=== PATIENT | male | born 1960 | race African-American/Black ===

== ENCOUNTER 2018-01-02 13:20 | Inpatient (IN) | payer SELFPAY ==
[2018-01-02 16:00] VITALS: BMI 20.3
--- NOTE | 2018-01-02 20:27 | HP ---
CIWA Score - CIWA Score Nausea/Vomitin-No Nausea/No Vomiting Muscle Tremors: 4-Moderate,w/Arms Extend Anxiety: 4-Mod. Anxious/Guarded Agitation: 4-Moderately Restless Paroxysmal Sweats: No Perspiration Orientation: 2-Disoriented Date<2 days Tacttile Disturbances: 0-None Auditory Disturbances: 0-None Visual Disturbances: 0-None Headache: 0-None Present CIWA-Ar Total Score: 14 Admission ROS BHS - HPI Chief Complaint: C/O WITHDRAWAL SX'S. SEEKING DETOX TXMENT Allergies/Adverse Reactions: Allergies Allergy/AdvReac Type Severity Reaction Status Date / Time No Known Allergies Allergy Verified 01/02/18 18:28 History of Present Illness: 57 Y.O. MALE WITH LONG HX/O ALCOHOLISM HERE FOR DETOX. CLIENT IS KNOWN TO THIS PROGRAM. LAST HERE ABOUT 2 YEARS AGO. REPORTS LAST INPATIENT TXMENT WAS ABOUT A MONTH AGO AT THE [facility]. UTOX + FOR BENZO. CLIENT DENIES USE. SELF REFERRED. REPORTS LONGEST CLEAN TIME 9 MONTHS. Exam Limitations: No Limitations - Ebola screening Have you traveled outside of the country in the last 21 days: No (N) Have you had contact with anyone from an Ebola affected area: No Have you been sick,other than usual withdrawal symptoms: No Do you have a fever: No - Review of Systems Constitutional: Loss of Appetite, Changes in sleep, Unintentional Wgt. Loss EENT: reports: Dental Problems (MISSING TEETH), Throat Pain (SORE), Other ( RINORRHEA) Respiratory: reports: No Symptoms reported Cardiac: reports: No Symptoms Reported GI: reports: No Symptoms Reported : reports: No Symptoms Reported Musculoskeletal: reports: Joint Pain Integumentary: reports: No Symptoms Reported Neuro: reports: No Symptoms reported Endocrine: reports: No Symptoms Reported Hematology: reports: No Symptoms Reported Psychiatric: reports: Anxious, Depressed Other Systems: Reviewed and Negative Patient History - Patient Medical History Hx Anemia: No Hx Asthma: No Hx Chronic Obstructive Pulmonary Disease (COPD): No Hx Cancer: No Hx Cardiac Disorders: No Hx Congestive Heart Failure: No Hx Hypertension: No Hx Hypercholesterolemia: No Hx Pacemaker: No HX Cerebrovascular Accident: No Hx Seizures: Yes (R/T ETOH WITHDRAWAL. LAST EPISODE "LONG TIME AGO") Hx Diabetes: No Hx Gastrointestinal Disorders: No Hx Genitourinary Disorders: No Hx Sexually Transmitted Disorders: No Hx Renal Disease (ESRD): No Hx Human Immunodeficiency Virus (HIV): No Hx Hepatitis C: Yes (TX'ED) Hx Depression: Yes (ON MEDS) Hx Suicide Attempt: Yes (Tried to cut himself in 1992; DENIES CURRENT IDEATION.) Hx Bipolar Disorder: Yes Hx Schizophrenia: No Other Medical History: DENIES - Patient Surgical History Past Surgical History: Yes Hx Neurologic Surgery: No Hx Cataract Extraction: No Hx Cardiac Surgery: No Hx Lung Surgery: No Hx Breast Surgery: No Hx Breast Biopsy: No Hx Abdominal Surgery: Yes (umbillical hernia repair in 2008) Hx Appendectomy: No Hx Cholecystectomy: No Hx Genitourinary Surgery: No Hx Section: No Hx Orthopedic Surgery: No Anesthesia Reaction: No - PPD History Previous Implant?: Yes Documented Results: Negative w/o proof Implanted On Prior R Admission?: No PPD to be Administered?: Yes - Smoking Cessation Smoking history: Current every day smoker Have you smoked in the past 12 months: Yes Aproximately how many cigarettes per day: 20 Cigars Per Day: 0 Hx Chewing Tobacco Use: No Initiated information on smoking cessation: Yes 'Breaking Loose' booklet given: 01/02/18 - Substance & Tx. History Hx Alcohol Use: Yes Hx Substance Use: Yes Substance Use Type: Alcohol, Cocaine Hx Substance Use Treatment: Yes ([facility]) - Substances Abused Alcohol Route: Oral Frequency: Daily Amount used: liquor- 4 pints, beer- 1 six pack Age of first use: 27 Date of Last Use: 01/02/18 Cocaine Route: Smoking Frequency: Daily Amount used: 5gm Age of first use: 30 Date of Last Use: 01/02/18 Family Disease History - Family Disease History Family History: Denies Admission Physical Exam S - Vital Signs Vital Signs: Vital Signs - 24 hr 01/02/18 15:54 Temperature 97.5 F L Pulse Rate 82 Respiratory 18 Rate Blood Pressure 116/84 - Physical General Appearance: Yes: Appropriately Dressed, Mild Distress, Alcohol on Breath , Tremorous, Anxious HEENTM: Yes: EOMI, Normocephalic, Normal Voice, ARMEN, Pharynx Normal, Rhinorrhea , Other (MISSING TEETH) Respiratory: Yes: Chest Non-Tender, Lungs Clear, Normal Breath Sounds, No Respiratory Distress, No Accessory Muscle Use Neck: Yes: No masses,lesions,Nodules, Supple, Trachea in good position Breast: Yes: Breast Exam Deferred Cardiology: Yes: Regular Rhythm, Regular Rate, S1, S2 Abdominal: Yes: Normal Bowel Sounds, Non Tender, Soft Genitourinary: Yes: Within Normal Limits Back: Yes: Normal Inspection Musculoskeletal: Yes: full range of Motion, Gait Steady Extremities: Yes: Normal Range of Motion, Non-Tender, Tremors Neurological: Yes: Alert, Motor Strength 5/5 Integumentary: Yes: Normal Color, Dry, Warm Lymphatic: Yes: Within Normal Limits - Diagnostic (1) Alcohol dependence with uncomplicated withdrawal Current Visit: Yes Status: Chronic (2) Cocaine abuse, uncomplicated Current Visit: Yes Status: Chronic (3) Alcohol related seizure Current Visit: Yes Status: Chronic (4) Nicotine dependence Current Visit: Yes Status: Chronic Qualifiers: Nicotine product type: cigarettes Substance use status: uncomplicated Qualified Code(s): F17.210 - Nicotine dependence, cigarettes, uncomplicated Cleared for Admission [facility] - Detox or Rehab [facility] Level of Care: Medically Managed Detox Regimen/Protocol: Librium [facility] Breath Alcohol Content Breath Alcohol Content: 0.129 Urine Drug Screen - Results Drug Screen Negative: No Urine Drug Screen Results: THC-Marijuana, JOSÉ MANUEL-Cocaine, BZO-Benzodiazepines
[2018-01-02] MEDS ORDERED: guaiFENesin/D-METHORPHAN HB 10 ML UNIT-DOSE CUPS PO PRN (20:47)
[2018-01-02] MEDS ORDERED: ACETAMINOPHEN 325 MG TABLET (FP) PO PRN (20:47)
[2018-01-02] MEDS ORDERED: LOPERAMIDE HCL 2 MG CAPSULE PO PRN (20:47)
[2018-01-02] MEDS ORDERED: MAGNESIUM CITRATE 300 ML BOTTLE PO PRN (20:47)
[2018-01-02] MEDS ORDERED: IBUPROFEN 400 MG TABLET (FP) PO PRN (20:47)
[2018-01-02] MEDS ORDERED: hydrOXYzine PAMOATE 50 MG CAPSULE (FP) PO PRN (20:47)
[2018-01-02] MEDS ORDERED: NICOTINE POLACRILEX 2 MG GUM BC PRN (20:47)
[2018-01-02] MEDS ORDERED: chlordiazePOXIDE HCL 25 MG CAPSULE PO PRN (20:47)
[2018-01-02] MEDS ORDERED: P-EPHED 60MG/TRIPROLIDI 2.5MG TABLET PO PRN (20:47)
[2018-01-02] MEDS ORDERED: MAGNESIUM HYDROX 2400MG/30ML ORAL SUSPENSION 30 ML CUP PO PRN (20:47)
[2018-01-02] MEDS ORDERED: MENTHOL/PHENOL 1 EACH UD MM PRN (20:47)
[2018-01-02] MEDS ORDERED: MAG HYDROX/AL HYDROX/SIMETH 30 ML UNIT-DOSE CUP PO PRN (20:47)
[2018-01-02] MEDS ORDERED: MELATONIN 5 MG TABLETS PO PRN (22:00)
[2018-01-02] MEDS: chlordiazePOXIDE HCL 25 MG CAPSULE PO SCH (22:05)
[2018-01-02] MEDS: THIAMINE HCL 100 MG TABLET (FP) PO SCH (22:06)
[2018-01-03 02:20] LABS: URINE APPEARANCE CLEAR; URINE BILIRUBIN NEGATIVE (<2.0 mg/dL); URINE BLOOD NEGATIVE (NEGATIVE); URINE COLOR YELLOW; URINE GLUCOSE (UA) NEGATIVE (NEGATIVE); URINE KETONE NEGATIVE (NEGATIVE); URINE LEUK ESTERASE NEGATIVE (NEGATIVE); URINE NITRITE NEGATIVE (NEGATIVE); URINE PROTEIN NEGATIVE (NEGATIVE); URINE UROBILINOGEN NEGATIVE mg/dL (0.2-1.0)
[2018-01-03] MEDS: chlordiazePOXIDE HCL 25 MG CAPSULE PO SCH ×4 (07:34→22:21)
--- NOTE | 2018-01-03 09:34 | EKG ---
Test Reason : Blood Pressure : / mmHG Vent. Rate : 058 BPM Atrial Rate : 058 BPM P-R Int : 136 ms QRS Dur : 096 ms QT Int : 432 ms P-R-T Axes : 046 077 068 degrees QTc Int : 424 ms SINUS BRADYCARDIA NO PREVIOUS ECGS AVAILABLE Confirmed by DEJA STERN MD ([id number]) on 01/03/2018 9:34:01 AM Referred By: Confirmed By:DEJA STERN MD
[2018-01-03 09:52] LABS: HEMATOCRIT 44.8 % (35.4-49); HEMOGLOBIN 14.2 GM/dL (11.7-16.9); MCHC 31.6 g/dl (32.0-35.9); MEAN CELL VOLUME 75.7 fl (80-96); MEAN PLT VOLUME 8.6 fl (7.5-11.1); PLATELET COUNT 174 K/MM3 (134-434); RBC 5.91 M/mm3 (4.00-5.60); RDW 14.6 % (11.9-15.9); WHITE BLOOD COUNT 4.9 K/mm3 (4.0-10.0)
[2018-01-03 10:07] LABS: ALBUMIN 3.5 g/dl (3.4-5.0); ANION GAP 5 (8-16); BLOOD UREA NITROGEN 9 mg/dL (7-18); CALCIUM 9.2 mg/dL (8.5-10.1); CHLORIDE 110 mmol/L (98-107); CO2 29 mmol/L (21-32); CREATININE 1.3 mg/dL (0.7-1.3); GLUCOSE,RANDOM 81 mg/dL (74-106); POTASSIUM 4.6 mmol/L (3.5-5.1); SGOT/AST 25 U/L (15-37); SGPT/ALT 21 U/L (12-78); SODIUM 144 mmol/L (136-145)
[2018-01-03 10:09] LABS: ALK PHOS 74 U/L (45-117)
[2018-01-03] MEDS: NICOTINE 21 MG/24 HOURS TOPICAL PATCH TD SCH (10:18)
[2018-01-03] MEDS: PRENATAL VITAMINS W/ FOLIC ACID TABLET (FP) PO SCH (10:18)
--- NOTE | 2018-01-03 10:49 | CONSULT ---
[facility] Psychiatric Consult - Data Date of interview: 01/03/18 Admission source: [facility] Identifying data: Pt. is a 57 year old single AA male, father of two, unemployed , lives in a one bedroom apartment and [facility]. This is one of multiple admissions for patient. Pt. admitted to detox for alcohol and cocaine dependence. Substance Abuse History: Following information confirmed with Mr. Ellis: Smoking Cessation. Smoking history: Current every day smoker. Have you smoked in the past 12 months: Yes. Aproximately how many cigarettes per day: 20. Cigars Per Day: 0. Hx Chewing Tobacco Use: No. Initiated information on smoking cessation: Yes. 'Breaking Loose' booklet given: 01/02/18. - Substance & Tx. History. Hx Alcohol Use: Yes. Hx Substance Use: Yes. Substance Use Type : Alcohol, Cocaine. Hx Substance Use Treatment: Yes ([facility]). - Substances Abused. Alcohol. Route: Oral. Frequency: Daily. Amount used: liquor- 4 pints, beer- 1 six pack. Age of first use: 27. Date of Last Use: 09/09. Cocaine. Route: Smoking. Frequency: Daily. Amount used: 5gm. Age of first use: 30. Date of Last Use: 01/02/18 Medical History: Hep C, Seizures (r/t ETOH withdrawal. Last episiode was "long time ago") Psychiatric History: Pt. lethargic and unable to provide a cohesive psychiatric history. Pt. reports several psychiatric hospitalizations, most recently three years ago at [facility] on [address]. [facility] (Pt. [facility] in the [employer]) in [facility]. Pt reports a diagnosis of Bipolar disorder and claims to be prescribed depakote 1500mg and Zyprexa 10mg. Reports most recently taking his medications approximately 8 days ago. Pt. denies h/o suicide attempt. Pt currently denies suicidal and homicidal ideation. Physical/Sexual Abuse/Trauma History: Denies. Mental Status Exam - Mental Status Exam Alert and Oriented to: Time, Place, Person Cognitive Function: Good Patient Appearance: Well Groomed Mood: Withdrawn Affect: Mood Congruent Patient Behavior: Fatigued, Guarded, Asleep (Pt able to be awaken to complete interview,although gave an unclear history. ) Speech Pattern: Delayed Voice Loudness: Moderately Soft/Quiet Thought Process: Intact Thought Disorder: Not Present Hallucinations: Denies Suicidal Ideation: Denies Homicidal Ideation: Denies Insight/Judgement: Poor Sleep: Fair Appetite: Fair Muscle strength/Tone: Normal Gait/Station: Other (Did not observe patient's gait.) Psychiatric Findings - Problem List ([place] 1, 2,3) (1) Alcohol dependence with uncomplicated withdrawal Current Visit: Yes Status: Acute (2) Cocaine abuse, uncomplicated Current Visit: Yes Status: Acute (3) Nicotine dependence Current Visit: Yes Status: Chronic Qualifiers: Nicotine product type: cigarettes Substance use status: uncomplicated Qualified Code(s): F17.210 - Nicotine dependence, cigarettes, uncomplicated (4) Bipolar disorder Current Visit: Yes Status: Chronic (5) Insomnia Current Visit: Yes Status: Acute - Initial Treatment Plan Initial Treatment Plan: Psychoeducation provided. Detoxification provided. Zyprexa 10mg qhs + Depakote 500mg qhs ordered. Insomnia to be addressed with the Melatonin 5mg. Valproic level to be ordered for 01/04/18. Benefits and side effects discussed. Verbal consent given. Will continue to monitor.
--- NOTE | 2018-01-03 11:38 | PN ---
S CIWA - CIWA Score Nausea/Vomitin Muscle Tremors: 3 Anxiety: 3 Agitation: 3 Paroxysmal Sweats: 1-Minimal Palms Moist Orientation: 0-Oriented Tacttile Disturbances: 1-Very Mild Itch/Numbness Auditory Disturbances: 1-Very Mild Visual Disturbances: 0-None Headache: 2-Mild CIWA-Ar Total Score: 17 BHS Progress Note (SOAP) Subjective: ALERT,IRRITABLE,ANXIOUS,INTERRUPTED SLEEP,TREMOR Objective: 01/03/18 11:35 Vital Signs Temperature 97.7 F 01/03/18 10:00 Pulse Rate 73 01/03/18 10:00 Respiratory Rate 18 01/03/18 10:00 Blood Pressure 107/81 01/03/18 10:00 O2 Sat by Pulse Oximetry (%) EKG SINUS BRADYCARDIA 58/MIN NO CHEST PAIN,NO SOB,NO DIZZINESS Laboratory Last Values WBC 4.9 K/mm3 (4.0-10.0) 01/03/18 08:00 RBC 5.91 M/mm3 (4.00-5.60) H 01/03/18 08:00 Hgb 14.2 GM/dL (11.7-16.9) 01/03/18 08:00 Hct 44.8 % (35.4-49) 01/03/18 08:00 MCV 75.7 fl (80-96) L 01/03/18 08:00 MCH 24.0 pg (25.7-33.7) L 01/03/18 08:00 MCHC 31.6 g/dl (32.0-35.9) L 01/03/18 08:00 RDW 14.6 % (11.9-15.9) 01/03/18 08:00 Plt Count 174 K/MM3 (134-434) 01/03/18 08:00 MPV 8.6 fl (7.5-11.1) D 01/03/18 08:00 Sodium 144 mmol/L (136-145) 01/03/18 08:00 Potassium 4.6 mmol/L (3.5-5.1) 01/03/18 08:00 Chloride 110 mmol/L (98-107) H 01/03/18 08:00 Carbon Dioxide 29 mmol/L (21-32) 01/03/18 08:00 Anion Gap 5 (8-16) L 01/03/18 08:00 BUN 9 mg/dL (7-18) 01/03/18 08:00 Creatinine 1.3 mg/dL (0.7-1.3) 01/03/18 08:00 Creat Clearance w eGFR 56.90 (>60) 01/03/18 08:00 Random Glucose 81 mg/dL (74-106) 01/03/18 08:00 Calcium 9.2 mg/dL (8.5-10.1) 01/03/18 08:00 Total Bilirubin 1.0 mg/dL (0.2-1.0) D 01/03/18 08:00 AST 25 U/L (15-37) D 01/03/18 08:00 ALT 21 U/L (12-78) D 01/03/18 08:00 Alkaline Phosphatase 74 U/L (45-117) 01/03/18 08:00 Total Protein 7.0 g/dl (6.4-8.2) 01/03/18 08:00 Albumin 3.5 g/dl (3.4-5.0) 01/03/18 08:00 Urine Color Yellow 01/03/18 00:05 Urine Appearance Clear 01/03/18 00:05 Urine pH 5.0 (5.0-8.0) 01/03/18 00:05 Ur Specific [place] 1.011 (1.001-1.035) 01/03/18 00:05 Urine Protein Negative (NEGATIVE) 01/03/18 00:05 Urine Glucose (UA) Negative (NEGATIVE) 01/03/18 00:05 Urine Ketones Negative (NEGATIVE) 01/03/18 00:05 Urine Blood Negative (NEGATIVE) 01/03/18 00:05 Urine Nitrite Negative (NEGATIVE) 01/03/18 00:05 Urine Bilirubin Negative (<2.0 mg/dL) 01/03/18 00:05 Urine Urobilinogen Negative mg/dL (0.2-1.0) 01/03/18 00:05 Ur Leukocyte Esterase Negative (NEGATIVE) 01/03/18 00:05 HIV 1&2 Antibody Screen Negative 01/03/18 08:00 HIV P24 Antigen Negative 01/03/18 08:00 01/03/18 11:38 RPR PENDING Assessment: 01/03/18 11:38 WITHDRAWAL SYMPTOM Plan: CONTINUE DETOX
[2018-01-03] MEDS: OLANZapine 10 MG TABLET PO SCH (22:21)
[2018-01-03] MEDS: THIAMINE HCL 100 MG TABLET (FP) PO SCH (22:21)
[2018-01-03] MEDS: DIVALPROEX SODIUM 500 MG TABLET E.C. PO SCH (22:21)
[2018-01-04] MEDS: chlordiazePOXIDE HCL 25 MG CAPSULE PO SCH ×3 (05:53→17:40)
[2018-01-04] MEDS: NICOTINE 21 MG/24 HOURS TOPICAL PATCH TD SCH (10:59)
[2018-01-04] MEDS: PRENATAL VITAMINS W/ FOLIC ACID TABLET (FP) PO SCH (10:59)
--- NOTE | 2018-01-04 14:26 | PN ---
S CIWA - CIWA Score Nausea/Vomitin Muscle Tremors: 3 Anxiety: 3 Agitation: 2 Paroxysmal Sweats: 1-Minimal Palms Moist Orientation: 0-Oriented Tacttile Disturbances: 1-Very Mild Itch/Numbness Auditory Disturbances: 1-Very Mild Visual Disturbances: 0-None Headache: 2-Mild CIWA-Ar Total Score: 16 BHS Progress Note (SOAP) Subjective: ALERT,IRRITABLE,ANXIOUS,INTERRUPTED SLEEP,TREMOR Objective: 01/04/18 14:24 Vital Signs Temperature 97.7 F 01/04/18 10:47 Pulse Rate 77 01/04/18 10:47 Respiratory Rate 20 01/04/18 10:47 Blood Pressure 105/68 01/04/18 10:47 O2 Sat by Pulse Oximetry (%) Laboratory Last Values WBC 4.9 K/mm3 (4.0-10.0) 01/03/18 08:00 RBC 5.91 M/mm3 (4.00-5.60) H 01/03/18 08:00 Hgb 14.2 GM/dL (11.7-16.9) 01/03/18 08:00 Hct 44.8 % (35.4-49) 01/03/18 08:00 MCV 75.7 fl (80-96) L 01/03/18 08:00 MCH 24.0 pg (25.7-33.7) L 01/03/18 08:00 MCHC 31.6 g/dl (32.0-35.9) L 01/03/18 08:00 RDW 14.6 % (11.9-15.9) 01/03/18 08:00 Plt Count 174 K/MM3 (134-434) 01/03/18 08:00 MPV 8.6 fl (7.5-11.1) D 01/03/18 08:00 Sodium 144 mmol/L (136-145) 01/03/18 08:00 Potassium 4.6 mmol/L (3.5-5.1) 01/03/18 08:00 Chloride 110 mmol/L (98-107) H 01/03/18 08:00 Carbon Dioxide 29 mmol/L (21-32) 01/03/18 08:00 Anion Gap 5 (8-16) L 01/03/18 08:00 BUN 9 mg/dL (7-18) 01/03/18 08:00 Creatinine 1.3 mg/dL (0.7-1.3) 01/03/18 08:00 Creat Clearance w eGFR 56.90 (>60) 01/03/18 08:00 Random Glucose 81 mg/dL (74-106) 01/03/18 08:00 Calcium 9.2 mg/dL (8.5-10.1) 01/03/18 08:00 Total Bilirubin 1.0 mg/dL (0.2-1.0) D 01/03/18 08:00 AST 25 U/L (15-37) D 01/03/18 08:00 ALT 21 U/L (12-78) D 01/03/18 08:00 Alkaline Phosphatase 74 U/L (45-117) 01/03/18 08:00 Total Protein 7.0 g/dl (6.4-8.2) 01/03/18 08:00 Albumin 3.5 g/dl (3.4-5.0) 01/03/18 08:00 Urine Color Yellow 01/03/18 00:05 Urine Appearance Clear 01/03/18 00:05 Urine pH 5.0 (5.0-8.0) 01/03/18 00:05 Ur Specific [place] 1.011 (1.001-1.035) 01/03/18 00:05 Urine Protein Negative (NEGATIVE) 01/03/18 00:05 Urine Glucose (UA) Negative (NEGATIVE) 01/03/18 00:05 Urine Ketones Negative (NEGATIVE) 01/03/18 00:05 Urine Blood Negative (NEGATIVE) 01/03/18 00:05 Urine Nitrite Negative (NEGATIVE) 01/03/18 00:05 Urine Bilirubin Negative (<2.0 mg/dL) 01/03/18 00:05 Urine Urobilinogen Negative mg/dL (0.2-1.0) 01/03/18 00:05 Ur Leukocyte Esterase Negative (NEGATIVE) 01/03/18 00:05 Valproic Acid 39.755 ug/ml (50-100) L 01/04/18 09:30 RPR Titer Nonreactive (NONREACTIVE) 01/03/18 08:00 HIV 1&2 Antibody Screen Negative 01/03/18 08:00 HIV P24 Antigen Negative 01/03/18 08:00 Assessment: 01/04/18 14:25 WITHDRAWAL SYMPTOM Plan: CONTINUE DETOX
[2018-01-04] MEDS: chlordiazePOXIDE 5 MG CAPSULE PO SCH (22:46)
[2018-01-04] MEDS: DIVALPROEX SODIUM 500 MG TABLET E.C. PO SCH (22:46)
[2018-01-04] MEDS: THIAMINE HCL 100 MG TABLET (FP) PO SCH (22:46)
[2018-01-04] MEDS: OLANZapine 10 MG TABLET PO SCH (22:46)
[2018-01-05] MEDS: chlordiazePOXIDE 5 MG CAPSULE PO SCH ×3 (05:37→17:32)
[2018-01-05] MEDS: PRENATAL VITAMINS W/ FOLIC ACID TABLET (FP) PO SCH (10:49)
[2018-01-05] MEDS: NICOTINE 21 MG/24 HOURS TOPICAL PATCH TD SCH (10:50)
--- NOTE | 2018-01-05 13:44 | PN ---
BHS Progress Note (SOAP) Subjective: feeling better less sweat no tremor denies gi distress Objective: 01/05/18 13:43 Vital Signs Temperature 97.5 F L 01/05/18 12:07 Pulse Rate 75 01/05/18 12:07 Respiratory Rate 18 01/05/18 12:07 Blood Pressure 120/83 01/05/18 12:07 O2 Sat by Pulse Oximetry (%) Laboratory Last Values WBC 4.9 K/mm3 (4.0-10.0) 01/03/18 08:00 RBC 5.91 M/mm3 (4.00-5.60) H 01/03/18 08:00 Hgb 14.2 GM/dL (11.7-16.9) 01/03/18 08:00 Hct 44.8 % (35.4-49) 01/03/18 08:00 MCV 75.7 fl (80-96) L 01/03/18 08:00 MCH 24.0 pg (25.7-33.7) L 01/03/18 08:00 MCHC 31.6 g/dl (32.0-35.9) L 01/03/18 08:00 RDW 14.6 % (11.9-15.9) 01/03/18 08:00 Plt Count 174 K/MM3 (134-434) 01/03/18 08:00 MPV 8.6 fl (7.5-11.1) D 01/03/18 08:00 Sodium 144 mmol/L (136-145) 01/03/18 08:00 Potassium 4.6 mmol/L (3.5-5.1) 01/03/18 08:00 Chloride 110 mmol/L (98-107) H 01/03/18 08:00 Carbon Dioxide 29 mmol/L (21-32) 01/03/18 08:00 Anion Gap 5 (8-16) L 01/03/18 08:00 BUN 9 mg/dL (7-18) 01/03/18 08:00 Creatinine 1.3 mg/dL (0.7-1.3) 01/03/18 08:00 Creat Clearance w eGFR 56.90 (>60) 01/03/18 08:00 Random Glucose 81 mg/dL (74-106) 01/03/18 08:00 Calcium 9.2 mg/dL (8.5-10.1) 01/03/18 08:00 Total Bilirubin 1.0 mg/dL (0.2-1.0) D 01/03/18 08:00 AST 25 U/L (15-37) D 01/03/18 08:00 ALT 21 U/L (12-78) D 01/03/18 08:00 Alkaline Phosphatase 74 U/L (45-117) 01/03/18 08:00 Total Protein 7.0 g/dl (6.4-8.2) 01/03/18 08:00 Albumin 3.5 g/dl (3.4-5.0) 01/03/18 08:00 Urine Color Yellow 01/03/18 00:05 Urine Appearance Clear 01/03/18 00:05 Urine pH 5.0 (5.0-8.0) 01/03/18 00:05 Ur Specific [place] 1.011 (1.001-1.035) 01/03/18 00:05 Urine Protein Negative (NEGATIVE) 01/03/18 00:05 Urine Glucose (UA) Negative (NEGATIVE) 01/03/18 00:05 Urine Ketones Negative (NEGATIVE) 01/03/18 00:05 Urine Blood Negative (NEGATIVE) 01/03/18 00:05 Urine Nitrite Negative (NEGATIVE) 01/03/18 00:05 Urine Bilirubin Negative (<2.0 mg/dL) 01/03/18 00:05 Urine Urobilinogen Negative mg/dL (0.2-1.0) 01/03/18 00:05 Ur Leukocyte Esterase Negative (NEGATIVE) 01/03/18 00:05 Valproic Acid 39.755 ug/ml (50-100) L 01/04/18 09:30 RPR Titer Nonreactive (NONREACTIVE) 01/03/18 08:00 HIV 1&2 Antibody Screen Negative 01/03/18 08:00 HIV P24 Antigen Negative 01/03/18 08:00 lab noted Assessment: mild withdrawal sx Plan: medically supervised detox
[2018-01-05] MEDS: THIAMINE HCL 100 MG TABLET (FP) PO SCH (22:43)
[2018-01-05] MEDS: OLANZapine 10 MG TABLET PO SCH (22:43)
[2018-01-05] MEDS: DIVALPROEX SODIUM 500 MG TABLET E.C. PO SCH (22:43)
[2018-01-05] MEDS: chlordiazePOXIDE HCL 10 MG CAPSULE PO SCH (22:43)
[2018-01-06] MEDS: chlordiazePOXIDE HCL 10 MG CAPSULE PO SCH ×2 (06:02→10:27)
--- NOTE | 2018-01-06 08:57 | PN ---
S Progress Note (SOAP) Subjective: ALERT,NO COMPLAINT Objective: 01/06/18 08:55 Vital Signs Temperature 97.0 F L 01/06/18 06:25 Pulse Rate 68 01/06/18 06:25 Respiratory Rate 18 01/06/18 06:25 Blood Pressure 94/64 01/06/18 06:25 O2 Sat by Pulse Oximetry (%) Assessment: 01/06/18 08:56 DETOX COMPLETED,NO WITHDRAWAL SYMPTOM Plan: DISCHARGE TODAY,FOLLOW UP WITH AFTER CARE PROGRAM ARRANGEMENT
--- NOTE | 2018-01-06 09:02 | DS ---
[facility] Detox Discharge Summary Admission Date: 01/02/18 Discharge Date: 01/06/18 - History Present History: Alcohol Dependence, Cocaine Dependence Additional Comments: FOLLOW UP WITH AFTER CARE PROGRAM ARRANGEMENT Pertinent Past History: ALCOHOL RELATED SEIZURE NICOTINE DEPENDENCE - Physical Exam Results Vital Signs: Vital Signs Temperature 97.0 F L 01/06/18 06:25 Pulse Rate 68 01/06/18 06:25 Respiratory Rate 18 01/06/18 06:25 Blood Pressure 94/64 01/06/18 06:25 O2 Sat by Pulse Oximetry (%) Pertinent Admission Physical Exam Findings: WITHDRAWAL SIGNS AND SYMPTOM Vital Signs Temperature 97.0 F L 01/06/18 06:25 Pulse Rate 68 01/06/18 06:25 Respiratory Rate 18 01/06/18 06:25 Blood Pressure 94/64 01/06/18 06:25 O2 Sat by Pulse Oximetry (%) Laboratory Last Values WBC 4.9 K/mm3 (4.0-10.0) 01/03/18 08:00 RBC 5.91 M/mm3 (4.00-5.60) H 01/03/18 08:00 Hgb 14.2 GM/dL (11.7-16.9) 01/03/18 08:00 Hct 44.8 % (35.4-49) 01/03/18 08:00 MCV 75.7 fl (80-96) L 01/03/18 08:00 MCH 24.0 pg (25.7-33.7) L 01/03/18 08:00 MCHC 31.6 g/dl (32.0-35.9) L 01/03/18 08:00 RDW 14.6 % (11.9-15.9) 01/03/18 08:00 Plt Count 174 K/MM3 (134-434) 01/03/18 08:00 MPV 8.6 fl (7.5-11.1) D 01/03/18 08:00 Sodium 144 mmol/L (136-145) 01/03/18 08:00 Potassium 4.6 mmol/L (3.5-5.1) 01/03/18 08:00 Chloride 110 mmol/L (98-107) H 01/03/18 08:00 Carbon Dioxide 29 mmol/L (21-32) 01/03/18 08:00 Anion Gap 5 (8-16) L 01/03/18 08:00 BUN 9 mg/dL (7-18) 01/03/18 08:00 Creatinine 1.3 mg/dL (0.7-1.3) 01/03/18 08:00 Creat Clearance w eGFR 56.90 (>60) 01/03/18 08:00 Random Glucose 81 mg/dL (74-106) 01/03/18 08:00 Calcium 9.2 mg/dL (8.5-10.1) 01/03/18 08:00 Total Bilirubin 1.0 mg/dL (0.2-1.0) D 01/03/18 08:00 AST 25 U/L (15-37) D 01/03/18 08:00 ALT 21 U/L (12-78) D 01/03/18 08:00 Alkaline Phosphatase 74 U/L (45-117) 01/03/18 08:00 Total Protein 7.0 g/dl (6.4-8.2) 01/03/18 08:00 Albumin 3.5 g/dl (3.4-5.0) 01/03/18 08:00 Urine Color Yellow 01/03/18 00:05 Urine Appearance Clear 01/03/18 00:05 Urine pH 5.0 (5.0-8.0) 01/03/18 00:05 Ur Specific [place] 1.011 (1.001-1.035) 01/03/18 00:05 Urine Protein Negative (NEGATIVE) 01/03/18 00:05 Urine Glucose (UA) Negative (NEGATIVE) 01/03/18 00:05 Urine Ketones Negative (NEGATIVE) 01/03/18 00:05 Urine Blood Negative (NEGATIVE) 01/03/18 00:05 Urine Nitrite Negative (NEGATIVE) 01/03/18 00:05 Urine Bilirubin Negative (<2.0 mg/dL) 01/03/18 00:05 Urine Urobilinogen Negative mg/dL (0.2-1.0) 01/03/18 00:05 Ur Leukocyte Esterase Negative (NEGATIVE) 01/03/18 00:05 Valproic Acid 39.755 ug/ml (50-100) L 01/04/18 09:30 RPR Titer Nonreactive (NONREACTIVE) 01/03/18 08:00 HIV 1&2 Antibody Screen Negative 01/03/18 08:00 HIV P24 Antigen Negative 01/03/18 08:00 - Treatment Hospital Course: Detox Protocol Followed, Detoxed Safely, Responded well, Discharged Condition Good Patient has Accepted a Rehab Referral to: DECLINED - Medication Discharge Medications: Ambulatory Orders Divalproex [Depakote -] 500 mg PO DAILY 02/24/15 Divalproex [Depakote -] 500 mg PO HS #30 tablet.ec 02/24/15 Olanzapine [ZyPREXA -] 10 mg PO DAILY 02/24/15 Olanzapine [ZyPREXA -] 10 mg PO HS #30 tablet 02/24/15 Gabapentin [Neurontin -] 600 mg PO TID #90 capsule 01/05/18 Phenytoin Na Extended [Dilantin -] 100 mg PO DAILY #30 capsule 01/05/18 - Diagnosis (1) Alcohol dependence with uncomplicated withdrawal Current Visit: Yes Status: Acute (2) Bipolar disorder Current Visit: Yes Status: Chronic (3) Cocaine abuse, uncomplicated Current Visit: Yes Status: Acute (4) Alcohol related seizure Current Visit: Yes Status: Chronic (5) Nicotine dependence Current Visit: Yes Status: Chronic Qualifiers: Nicotine product type: cigarettes Substance use status: uncomplicated Qualified Code(s): F17.210 - Nicotine dependence, cigarettes, uncomplicated - AMA Did Patient Leave Against Medical Advice: No
[2018-01-06 10:16] VITALS: BP 111/72; PULSE 81; TEMP 96.4
[2018-01-06] MEDS: PRENATAL VITAMINS W/ FOLIC ACID TABLET (FP) PO SCH (10:26)
[2018-01-06] MEDS: NICOTINE 21 MG/24 HOURS TOPICAL PATCH TD SCH (10:27)
== END 2018-01-06 14:20 | disposition home or self-care (01) | DRG 774 ==
LOC: YASAS 13:20 → Y6N 17:59
PROVIDERS: ADMIT Internal Medicine; ATTEND Internal Medicine
PROC: HZ2ZZZZ Detoxification Services for Substance Abuse Treatment (ICD-10-PCS; principal; 2018-01-02)
DX: F10.230 Alcohol dependence with withdrawal, uncomplicated (principal); F14.10 Cocaine abuse, uncomplicated; F17.210 Nicotine dependence, cigarettes, uncomplicated; F31.9 Bipolar disorder, unspecified; G47.00 Insomnia, unspecified; Z86.69 Personal history of other diseases of the nervous system and sense organs; Z91.5 Personal history of self-harm
CPT/HCPCS: 36415; 80053; 80164; 81003; 85027; 86593; 87389; 93005; 93010

== ENCOUNTER 2018-03-05 15:00 | Inpatient (IN) | payer OTHER ==
[2018-03-05 20:06] VITALS: BMI 19.5
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
[2018-03-05] MEDS ORDERED: MENTHOL/PHENOL 1 EACH UD MM PRN (21:23)
[2018-03-05] MEDS ORDERED: chlordiazePOXIDE HCL 25 MG CAPSULE PO PRN (21:23)
[2018-03-05] MEDS ORDERED: MAG HYDROX/AL HYDROX/SIMETH 30 ML UNIT-DOSE CUP PO PRN (21:23)
[2018-03-05] MEDS ORDERED: LOPERAMIDE HCL 2 MG CAPSULE PO PRN (21:23)
[2018-03-05] MEDS ORDERED: ACETAMINOPHEN 325 MG TABLET (FP) PO PRN (21:23)
[2018-03-05] MEDS ORDERED: MAGNESIUM CITRATE 300 ML BOTTLE PO PRN (21:23)
[2018-03-05] MEDS ORDERED: METHADONE HCL 10 MG TABLET (FOR DETOX USE ONLY) PO ONE ×2 (21:23→23:00)
[2018-03-05] MEDS ORDERED: NICOTINE POLACRILEX 2 MG GUM BC PRN (21:23)
[2018-03-05] MEDS ORDERED: IBUPROFEN 400 MG TABLET (FP) PO PRN (21:23)
[2018-03-05] MEDS ORDERED: P-EPHED 60MG/TRIPROLIDI 2.5MG TABLET PO PRN (21:23)
[2018-03-05] MEDS ORDERED: guaiFENesin/D-METHORPHAN HB 10 ML UNIT-DOSE CUPS PO PRN (21:23)
[2018-03-05] MEDS ORDERED: MAGNESIUM HYDROX 2400MG/30ML ORAL SUSPENSION 30 ML CUP PO PRN (21:23)
[2018-03-05] MEDS ORDERED: MELATONIN 5 MG TABLETS PO PRN (22:00)
[2018-03-05] MEDS ORDERED: METHADONE HCL 10 MG TABLET (FOR DETOX USE ONLY) ONE (23:51)
[2018-03-05] MEDS: chlordiazePOXIDE HCL 25 MG CAPSULE PO SCH (23:56)
[2018-03-05] MEDS: THIAMINE HCL 100 MG TABLET (FP) PO SCH (23:59)
[2018-03-06] MEDS: chlordiazePOXIDE HCL 25 MG CAPSULE PO SCH ×4 (09:47→22:19)
[2018-03-06] MEDS ORDERED: METHADONE HCL 10 MG TABLET (FOR DETOX USE ONLY) PO SCH (10:00)
[2018-03-06 10:14] LABS: HEMATOCRIT 37.7 % (35.4-49); HEMOGLOBIN 11.9 GM/dL (11.7-16.9); MCHC 31.5 g/dl (32.0-35.9); MEAN CELL VOLUME 76.3 fl (80-96); MEAN PLT VOLUME 8.2 fl (7.5-11.1); PLATELET COUNT 169 K/MM3 (134-434); RBC 4.94 M/mm3 (4.00-5.60); RDW 14.6 % (11.9-15.9); WHITE BLOOD COUNT 4.5 K/mm3 (4.0-10.0)
[2018-03-06] MEDS: NICOTINE 14 MG/24 HOURS TOPICAL PATCH TD SCH (10:21)
[2018-03-06] MEDS: PRENATAL VITAMINS W/ FOLIC ACID TABLET (FP) PO SCH (10:21)
[2018-03-06 10:38] LABS: ALBUMIN 3.1 g/dl (3.4-5.0); ANION GAP 7 (8-16); BLOOD UREA NITROGEN 12 mg/dL (7-18); CALCIUM 8.4 mg/dL (8.5-10.1); CHLORIDE 108 mmol/L (98-107); CO2 28 mmol/L (21-32); GLUCOSE,RANDOM 76 mg/dL (74-106); POTASSIUM 4.1 mmol/L (3.5-5.1); SODIUM 143 mmol/L (136-145)
[2018-03-06 10:42] LABS: ALK PHOS 62 U/L (45-117); BILIRUBIN,TOTAL 0.5 mg/dL (0.2-1.0); CREATININE 1.2 mg/dL (0.7-1.3); SGOT/AST 14 U/L (15-37); SGPT/ALT 17 U/L (12-78); TOT PROT 6.3 g/dl (6.4-8.2)
--- NOTE | 2018-03-06 11:12 | PN ---
[facility] CIWA - CIWA Score Nausea/Vomitin-No Nausea/No Vomiting Muscle Tremors: 4-Moderate,w/Arms Extend Anxiety: 4-Mod. Anxious/Guarded Agitation: 4-Moderately Restless Paroxysmal Sweats: 1-Minimal Palms Moist Orientation: 0-Oriented Tacttile Disturbances: 0-None Auditory Disturbances: 0-None Visual Disturbances: 0-None Headache: 0-None Present CIWA-Ar Total Score: 13 BHS COWS - Scale Resting Pulse: 0= MD 80 or Below Sweatin= Chills/Flushing Restless Observation: 3= Extraneous Movement Pupil Size: 2= Moderately Dilated Bone or Joint Aches: 4=Acute Joint/Muscle Pain Runny Nose/ Eye Tearin= Nasal Congestion GI Upset > 30mins: 0= None Tremor Observation of Outstretched Hands: 1= Tremor [place], Not Seen Yawning Observation: 0= None Anxiety or Irritability: 1=Feels Anxious/Irritable Goose Flesh Skin: 0=Smooth Skin COWS Score: 13 S Progress Note (SOAP) Subjective: ANXIETY,SWEATS,INTERMITTENT SLEEP. OOB AMBULATING WITH STEADY GAIT. Objective: 03/06/18 11:12 Vital Signs 03/06/18 09:20 Temperature 97.3 F L Pulse Rate 58 L Respiratory 18 Rate Blood Pressure 97/63 Laboratory Tests 03/06/18 03/06/18 08:50 08:50 WBC 4.5 RBC 4.94 Hgb 11.9 Hct 37.7 MCV 76.3 L MCH 24.0 L MCHC 31.5 L RDW 14.6 Plt Count 169 MPV 8.2 Sodium 143 Potassium 4.1 Chloride 108 H Carbon Dioxide 28 Anion Gap 7 L BUN 12 Creatinine 1.2 Creat Clearance w eGFR > 60 Random Glucose 76 Calcium 8.4 L Total Bilirubin 0.5 AST 14 L ALT 17 Alkaline Phosphatase 62 Total Protein 6.3 L Albumin 3.1 L OTHER LABS PENDING Assessment: 03/06/18 11:12 WITHDRAWAL SX Plan: CONTINUE DETOX
--- NOTE | 2018-03-06 11:14 | EKG ---
Test Reason : Blood Pressure : / mmHG Vent. Rate : 056 BPM Atrial Rate : 056 BPM P-R Int : 144 ms QRS Dur : 096 ms QT Int : 442 ms P-R-T Axes : 064 067 043 degrees QTc Int : 426 ms SINUS BRADYCARDIA WITH SINUS ARRHYTHMIA OTHERWISE NORMAL ECG WHEN COMPARED WITH ECG OF 05-MAR-2018 23:34, NO SIGNIFICANT CHANGE WAS FOUND Confirmed by KIMBERLYN LOOMIS, DONTE ([id number]) on 03/06/2018 11:13:56 AM Referred By: Confirmed By:DONTE SOFIA MD
--- NOTE | 2018-03-06 11:15 | EKG ---
Test Reason : Blood Pressure : / mmHG Vent. Rate : 060 BPM Atrial Rate : 060 BPM P-R Int : 144 ms QRS Dur : 106 ms QT Int : 418 ms P-R-T Axes : 044 077 062 degrees QTc Int : 418 ms NORMAL SINUS RHYTHM INCOMPLETE RIGHT BUNDLE BRANCH BLOCK BORDERLINE ECG NO PREVIOUS ECGS AVAILABLE Confirmed by KIMBERLYN LOOMIS, DONTE ([id number]) on 03/06/2018 11:14:44 AM Referred By: Confirmed By:DONTE SOFIA MD
[2018-03-06] MEDS: DIVALPROEX NA *ER* EXTEND REL 500 MG TABLET.SA (FP) PO SCH (12:23)
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
[2018-03-06] MEDS: OLANZapine 5 MG TABLET PO SCH (22:19)
[2018-03-06] MEDS: THIAMINE HCL 100 MG TABLET (FP) PO SCH (22:19)
[2018-03-07] MEDS: chlordiazePOXIDE HCL 25 MG CAPSULE PO SCH ×3 (05:22→17:00)
[2018-03-07] MEDS: PRENATAL VITAMINS W/ FOLIC ACID TABLET (FP) PO SCH (10:16)
[2018-03-07] MEDS: METHADONE HCL 5 MG TABLET (FOR DETOX USE ONLY) PO SCH (10:16)
[2018-03-07] MEDS: NICOTINE 14 MG/24 HOURS TOPICAL PATCH TD SCH (10:17)
[2018-03-07] MEDS: DIVALPROEX NA *ER* EXTEND REL 500 MG TABLET.SA (FP) PO SCH (14:13)
--- NOTE | 2018-03-07 14:27 | PN ---
S CIWA - CIWA Score Nausea/Vomitin-No Nausea/No Vomiting Muscle Tremors: 2 Anxiety: 4-Mod. Anxious/Guarded Agitation: 4-Moderately Restless Paroxysmal Sweats: 3 Orientation: 0-Oriented Tacttile Disturbances: 0-None Auditory Disturbances: 0-None Visual Disturbances: 2-Mild Sensitivity Headache: 0-None Present CIWA-Ar Total Score: 15 BHS COWS - Scale Resting Pulse: 1= RI 81-100 Sweatin= Chills/Flushing Restless Observation: 1= Difficult to Sit Still Pupil Size: 0= Normal to Room Light Bone or Joint Aches: 2= Severe Diffuse Aches Runny Nose/ Eye Tearin= None GI Upset > 30mins: 0= None Tremor Observation of Outstretched Hands: 2= Slight Tremor Visible Yawning Observation: 2= >3x During Session Anxiety or Irritability: 2=Irritable/Anxious Goose Flesh Skin: 0=Smooth Skin COWS Score: 11 S Progress Note (SOAP) Subjective: Tremors, Sweating, Anxious, Fatigue. Objective: PATIENT A & O X 3, OBSERVED AMBULATING ON UNIT. NO ACUTE DISTRESS. 03/07/18 14:28 Vital Signs Temperature 98.5 F 03/07/18 14:14 Pulse Rate 82 03/07/18 14:14 Respiratory Rate 16 03/07/18 14:14 Blood Pressure 118/74 03/07/18 14:14 O2 Sat by Pulse Oximetry (%) Laboratory Tests 03/06/18 03/06/18 03/06/18 08:50 08:50 08:50 WBC 4.5 RBC 4.94 Hgb 11.9 Hct 37.7 MCV 76.3 L MCH 24.0 L MCHC 31.5 L RDW 14.6 Plt Count 169 MPV 8.2 Sodium 143 Potassium 4.1 Chloride 108 H Carbon Dioxide 28 Anion Gap 7 L BUN 12 Creatinine 1.2 Creat Clearance w eGFR > 60 Random Glucose 76 Calcium 8.4 L Total Bilirubin 0.5 AST 14 L ALT 17 Alkaline Phosphatase 62 Total Protein 6.3 L Albumin 3.1 L Valproic Acid RPR Titer Nonreactive 03/07/18 06:00 WBC RBC Hgb Hct MCV MCH MCHC RDW Plt Count MPV Sodium Potassium Chloride Carbon Dioxide Anion Gap BUN Creatinine Creat Clearance w eGFR Random Glucose Calcium Total Bilirubin AST ALT Alkaline Phosphatase Total Protein Albumin Valproic Acid < 3.0 L RPR Titer LABS NOTED. Assessment: 03/07/18 14:29 WITHDRAWAL SYMPTOMS. Plan: CONTINUE DETOX. DEPAKOTE ER 500 MG PO X 1 ORDERED FOR LOW DEPAKOTE BLOOD LEVEL. INCREASE DAILY PO FLUID INTAKE.
[2018-03-07] MEDS ORDERED: DIVALPROEX NA *ER* EXTEND REL 500 MG TABLET.SA (FP) PO ONE (14:31)
[2018-03-07] MEDS: chlordiazePOXIDE 5 MG CAPSULE PO SCH (22:06)
[2018-03-07] MEDS: THIAMINE HCL 100 MG TABLET (FP) PO SCH (22:07)
[2018-03-07] MEDS: OLANZapine 5 MG TABLET PO SCH (22:08)
[2018-03-08] MEDS: chlordiazePOXIDE 5 MG CAPSULE PO SCH ×3 (06:45→17:37)
--- NOTE | 2018-03-08 07:37 | PN ---
S Progress Note Note: Patient was seen and evaluated in bed. He appears confused and oriented to self. Nurse reports that patient had unsteady gait and was going into other people's room. 1:1 constant observation for safety initiated and ammonia level ordered.
[2018-03-08 09:11] VITALS: BP 117/82; PULSE 73; TEMP 98.7
[2018-03-08] MEDS ORDERED: DIVALPROEX NA *ER* EXTEND REL 500 MG TABLET.SA (FP) PO SCH ×2 (10:00)
[2018-03-08] MEDS ORDERED: DIVALPROEX SODIUM 500 MG TABLET E.C. PO SCH (10:00)
--- NOTE | 2018-03-08 10:15 | PN ---
[facility] Progress Note (SOAP) Subjective: Fatigue, Interrupted Sleep, Nausea. Objective: PATIENT A & O X 2 (UNCERTAIN ABOUT CURRENT LOCATION). 03/08/18 10:12 Vital Signs Temperature 98.7 F 03/08/18 09:10 Pulse Rate 73 03/08/18 09:10 Respiratory Rate 18 03/08/18 09:10 Blood Pressure 117/82 03/08/18 09:10 O2 Sat by Pulse Oximetry (%) Laboratory Tests 03/06/18 03/06/18 03/06/18 08:50 08:50 08:50 WBC 4.5 RBC 4.94 Hgb 11.9 Hct 37.7 MCV 76.3 L MCH 24.0 L MCHC 31.5 L RDW 14.6 Plt Count 169 MPV 8.2 Sodium 143 Potassium 4.1 Chloride 108 H Carbon Dioxide 28 Anion Gap 7 L BUN 12 Creatinine 1.2 Creat Clearance w eGFR > 60 Random Glucose 76 Calcium 8.4 L Total Bilirubin 0.5 AST 14 L ALT 17 Alkaline Phosphatase 62 Total Protein 6.3 L Albumin 3.1 L Valproic Acid RPR Titer Nonreactive 03/07/18 06:00 WBC RBC Hgb Hct MCV MCH MCHC RDW Plt Count MPV Sodium Potassium Chloride Carbon Dioxide Anion Gap BUN Creatinine Creat Clearance w eGFR Random Glucose Calcium Total Bilirubin AST ALT Alkaline Phosphatase Total Protein Albumin Valproic Acid < 3.0 L RPR Titer LABS NOTED. Assessment: 03/08/18 10:13 WITHDRAWAL SYMPTOMS. Plan: CONTINUE DETOX. PATIENT TO BE SENT TO [facility] ER FOR LETHARGY AND ATAXIA. SEE FOLLOWING PROGRESS NOTE.
--- NOTE | 2018-03-08 10:24 | PN ---
[facility] Progress Note Note: PATIENT VERY LETHARGIC SINCE YESTERDAY AND REPORTED TO HAVE UNSTEADY BALANCE LAST NIGHT BY NIGHT RN / SVP OF DIGITAL STAFF. AMMONIA LEVEL ORDERED EARLIER THIS AM ( RESULT PENDING). PATIENT ALSO REPORTS NAUSEA AND H/A AT THIS TIME. PATIENT A & O X 2 (UNCERTAIN ABOUT CURRENT LOCATION). PATIENT DENIES ANY KNOWN HISTORY OF SIMILAR OCCURRENCE, DENIES ANY HISTORY IF HEAD INJURY, AND DENIES ANY KNOWN HISTORY OF LIVER DISEASE. PATIENT HAS HISTORY OF SEIZURE DISORDER (TAKES DEPAKOTE ER 1500 MG DAILY). REPORT GIVEN TO DR. CYNTHIA HA MD AT [facility]. PATIENT TO BE TAKEN VIA AMBULANCE TO [facility] FOR FURTHER MEDICAL EVALUATION. Ramandeep BRIONES NP
[2018-03-08] MEDS: METHADONE HCL 5 MG TABLET (FOR DETOX USE ONLY) PO SCH (10:49)
[2018-03-08] MEDS: NICOTINE 14 MG/24 HOURS TOPICAL PATCH TD SCH (10:50)
[2018-03-08] MEDS: PRENATAL VITAMINS W/ FOLIC ACID TABLET (FP) PO SCH (10:50)
[2018-03-08] MEDS: THIAMINE HCL 100 MG TABLET (FP) PO SCH (22:43)
[2018-03-08] MEDS: OLANZapine 5 MG TABLET PO SCH (22:43)
[2018-03-08] MEDS ORDERED: chlordiazePOXIDE HCL 10 MG CAPSULE PO SCH (23:00)
[2018-03-09] MEDS ORDERED: METHADONE HCL 10 MG TABLET (FOR DETOX USE ONLY) PO SCH (10:00)
[2018-03-10] MEDS ORDERED: METHADONE HCL 5 MG TABLET (FOR DETOX USE ONLY) PO SCH (06:00)
== END 2018-03-09 | disposition short-term general hospital (02) | DRG 773 ==
LOC: YASAS 15:00 → Y3N 20:20 → MERGE 20:20
PROVIDERS: ADMIT Family Medicine Addiction Medicine; ATTEND Nurse Practitioner Family
PROC: HZ2ZZZZ Detoxification Services for Substance Abuse Treatment (ICD-10-PCS; principal; 2018-03-05)
DX: F11.23 Opioid dependence with withdrawal (principal); F10.230 Alcohol dependence with withdrawal, uncomplicated; F14.20 Cocaine dependence, uncomplicated; F12.20 Cannabis dependence, uncomplicated; F17.210 Nicotine dependence, cigarettes, uncomplicated; F32.9 Major depressive disorder, single episode, unspecified; F41.9 Anxiety disorder, unspecified; G40.909 Epilepsy, unspecified, not intractable, without status epilepticus
CPT/HCPCS: 36415; 71046-TC-FY; 80053; 80164; 82140; 85027; 86593; 93005; 93010

== ENCOUNTER 2018-03-08 12:43 | Inpatient (IN) | payer OTHER ==
[2018-03-08 13:16] VITALS: BMI 19.8
--- NOTE | 2018-03-08 13:43 | PDOC ---
History of Present Illness - General Chief Complaint: Lethargy Stated Complaint: LETHARGY Time Seen by Provider: 03/08/18 13:28 History Source: Patient, EMS Exam Limitations: No Limitations - History of Present Illness Initial Comments: This is a 57 YOM with h/o polysubstance abuse (cocaine, opiates, marijuana, EtOH , via ingestion/smoking and IVDA, now on methadone) and seizure disorder ( noncompliant on depakote) who was BIBA from [facility] for lethargy and weakness. The patient himself states that he has been having all-over bodily pain with no one part more painful than the other. He also has been nauseated and more confused than normal, and has mild diffuse abdominal pain. He denies any hallucinations, fever, chills, diarrhea, constipation, rash/skin changes, headache, vision changes, trouble walking, or other symptoms. His most recent depakote level was taken on 03/07 and was <3.0. His ammonia level this morning was above 60. Past History - Past Medical History Allergies/Adverse Reactions: Allergies Allergy/AdvReac Type Severity Reaction Status Date / Time No Known Allergies Allergy Verified 03/08/18 13:33 Home Medications: Ambulatory Orders Olanzapine [Zyprexa -] 10 mg PO HS 03/05/18 Sertraline HCl [Zoloft] 25 mg PO DAILY 03/05/18 Divalproex Sodium [Depakote ER] 1,500 mg PO DAILY 03/08/18 Anemia: No Asthma: No Cancer: No Cardiac Disorders: No CVA: No COPD: No CHF: No Diabetes: No GI Disorders: No Disorders: No HTN: No Hypercholesterolemia: No Kidney Stones: No Seizures: Yes (6 MONTHS AGO- ON DEPAKOTE) Thyroid Disease: No - Surgical History Abdominal Surgery: Yes (HERNIA REPAIR UNBILICAL 80'S) Appendectomy: No Cardiac Surgery: No Cholecystectomy: No Lung Surgery: No Neurologic Surgery: No Orthopedic Surgery: No - Reproductive History Testicular Surgery: No - Suicide/Smoking/Psychosocial Hx Smoking History: Unknown if ever smoked Have you smoked in the past 12 months: No Number of Cigarettes Smoked Daily: 20 Cigars Per Day: 0 Information on smoking cessation initiated: No 'Breaking Loose' booklet given: 03/05/18 Hx Alcohol Use: No Drug/Substance Use Hx: No Substance Use Type: Alcohol, Cocaine, Marijuana, Heroin Hx Substance Use Treatment: Yes (Patient does not remember name of last Detox Center) *Physical Exam - Vital Signs Last Vital Signs Temp Pulse Resp BP Pulse Ox 99.1 F 83 16 101/77 100 03/08/18 12:43 03/08/18 12:43 03/08/18 12:43 03/08/18 12:43 03/08/18 12:43 ED Treatment Course - LABORATORY CBC & Chemistry Diagram: 03/08/18 14:00 03/08/18 14:00 *DC/Admit/Observation/Transfer Diagnosis at time of Disposition: Polysubstance (excluding opioids) dependence, Withdrawal complaint Altered mental state Qualifiers: Altered mental status type: unspecified Qualified Code(s): R41.82 - Altered mental status, unspecified - Discharge Dispostion Condition at time of disposition: Guarded Decision to Admit order: Yes - Referrals Referrals: Stanislav Valles MD [Primary Care Provider] - - Patient Instructions - Post Discharge Activity
[2018-03-08] MEDS ORDERED: FOLIC ACID INJECTION - 1 MG, THIAMINE HCL 100 MG, MULTIVIT INJECTION ADULT 10 ML in SOD... IVPB ONE (13:49)
[2018-03-08 14:25] LABS: EOS % 1.1 % (0-4.5); HEMATOCRIT 42.8 % (35.4-49); HEMOGLOBIN 13.3 GM/dL (11.7-16.9); LYMPH % 18.7 % (8-40); MCH 23.9 pg (25.7-33.7); MCHC 31.1 g/dl (32.0-35.9); MEAN CELL VOLUME 76.8 fl (80-96); MEAN PLT VOLUME 7.6 fl (7.5-11.1); MONO % 5.6 % (3.8-10.2); NEUT % 73.6 % (42.8-82.8); PLATELET COUNT 173 K/MM3 (134-434); RBC 5.57 M/mm3 (4.00-5.60); RDW 14.7 % (11.9-15.9); WHITE BLOOD COUNT 10.6 K/mm3 (4.0-10.0)
[2018-03-08 14:57] LABS: ACETAMINOPHEN < AMR ug/mL; ALBUMIN 3.4 g/dl (3.4-5.0); ANION GAP 2 (8-16); BLOOD UREA NITROGEN 10 mg/dL (7-18); CALCIUM 9.2 mg/dL (8.5-10.1); CHLORIDE 103 mmol/L (98-107); CO2 35 mmol/L (21-32); CREATININE 1.2 mg/dL (0.7-1.3); GLUCOSE,RANDOM 70 mg/dL (74-106); MAGNESIUM 1.7 mg/dL (1.8-2.4); PHOSPHOROUS 2.5 mg/dL (2.5-4.9); POTASSIUM 4.2 mmol/L (3.5-5.1); SALICYLATE < 1.70 mg/dL; SGOT/AST 14 U/L (15-37); SGPT/ALT 17 U/L (12-78); SODIUM 140 mmol/L (136-145)
--- NOTE | 2018-03-08 15:05 | PDOC ---
Attending Attestation - Resident Resident Name: Matthews,Katy - ED Attending Attestation I have performed the following: I have examined & evaluated the patient, The case was reviewed & discussed with the resident, I agree w/resident's findings & plan, Exceptions are as noted - HPI HPI: 03/08/18 15:00 57-year-old male with history of polysubstance abuse, seizure disorder on Depakote brought in by EMS from detox center for lethargy and weakness. The patient has been from detox centers in complaining about diffuse body aches and general malaise. Denies focal symptoms. But the patient has been recently feeling more confused than usual. Denies fevers or chills. - Physicial Exam PE: 03/08/18 15:00 GENERAL: Awake, alert. +tired appearing. HEAD: No signs of trauma EYES: EOMI, sclera anicteric, conjunctiva clear ENT: Auricles normal inspection, hearing grossly normal, nares patent NECK: Normal ROM, supple LUNGS: Breath sounds equal, clear to auscultation bilaterally. No wheezes, and no crackles HEART: Regular rate and rhythm, normal S1 and S2, no murmurs, rubs or gallops ABDOMEN: Soft, nontender. No guarding, no rebound. No masses EXTREMITIES: Normal range of motion, no edema. No clubbing or cyanosis. No cords, erythema, or tenderness NEUROLOGICAL: Cranial nerves II through XII grossly intact. SKIN: Warm, Dry, normal turgor, no rashes or lesions noted. - Medical Decision Making 03/08/18 15:04 Vital Signs Temp Pulse Resp BP Pulse Ox 99.1 F 83 16 101/77 100 03/08/18 12:43 03/08/18 12:43 03/08/18 12:43 03/08/18 12:43 03/08/18 12:43 The patient has been present lethargy and weakness. Given the elevated ammonia found in blood work performed earlier today, it is possible the patient may be having hepatic encephalopathy secondary to alcohol abuse. We'll obtain another blood work to look for metabolic or infectious etiology. We'll also obtain EKG and head CT value for cardiac and neurologic symptoms. Ultimately, the patient should be admitted for further evaluation. 03/08/18 16:08 CBC, BMP 03/08/18 14:00 03/08/18 14:00 CMP Sodium 140 mmol/L (136-145) 03/08/18 14:00 Potassium 4.2 mmol/L (3.5-5.1) 03/08/18 14:00 Chloride 103 mmol/L (98-107) 03/08/18 14:00 Carbon Dioxide 35 mmol/L (21-32) H D 03/08/18 14:00 Anion Gap 2 (8-16) L 03/08/18 14:00 BUN 10 mg/dL (7-18) 03/08/18 14:00 Creatinine 1.2 mg/dL (0.7-1.3) 03/08/18 14:00 Creat Clearance w eGFR > 60 (>60) 03/08/18 14:00 Random Glucose 70 mg/dL (74-106) L 03/08/18 14:00 Calcium 9.2 mg/dL (8.5-10.1) 03/08/18 14:00 Phosphorus 2.5 mg/dL (2.5-4.9) 03/08/18 14:00 Magnesium 1.7 mg/dL (1.8-2.4) L 03/08/18 14:00 Total Bilirubin 0.6 mg/dL (0.2-1.0) 03/08/18 14:00 AST 14 U/L (15-37) L 03/08/18 14:00 ALT 17 U/L (12-78) 03/08/18 14:00 Alkaline Phosphatase 67 U/L (45-117) 03/08/18 14:00 Creatine Kinase 94 IU/L (39-308) 03/08/18 14:00 Troponin I < 0.02 ng/ml (0.00-0.05) 03/08/18 14:00 Total Protein 7.6 g/dl (6.4-8.2) D 03/08/18 14:00 Albumin 3.4 g/dl (3.4-5.0) 03/08/18 14:00 Vitamin B12 523 pg/ml (180-914) 03/08/18 14:00 TSH 0.46 uIU/ml (0.358-3.74) 03/08/18 14:[address] with no acute findings. Admit. Heart Score/ECG Review #1 ECG reviewed & interpreted by me at: 14:00 03/08/18 15:05 NSR 65, no std/lito, incomplete RBBB, QTC 380 msec.
[2018-03-08 15:20] LABS: ALK PHOS 67 U/L (45-117); BILIRUBIN,TOTAL 0.6 mg/dL (0.2-1.0); TOT PROT 7.6 g/dl (6.4-8.2)
[2018-03-08] MEDS: LORazepam 1 MG TABLET PO ONE ×2 (17:05→17:15)
[2018-03-08] MEDS ORDERED: LORazepam 0.5 MG TABLET ONE (17:15)
--- NOTE | 2018-03-08 17:29 | HP ---
CHIEF COMPLAINT: confusion, lethargy PCP: HISTORY OF PRESENT ILLNESS: Patient is a 57 year old male with a significant past medical history of polysubstance abuse (cocaine, opiates, marijuana, ETOH) and seizure disorder. He was sent from [facility] for increased lethargy and weakness that was noted today at the facility. Patient is on the methadone detox program but unable to participate secondary to lethargy and also on a librium taper for ETOH abuse. Patient denies any drug use, denies any seizure activity. Last seizure was 6 months ago. Patient further reports generalized body pain, worse than his usual withdrawals symptoms. He also has been nauseated and more confused than normal, and has abdominal pain. He denies any hallucinations, or other symptoms. His most recent depakote level was taken on 03/07 and was <3.0. His ammonia level this morning was above 60. EKG shows NSR with t wave abnormality. Head CT negative. Will order urine utox , and hold sedating agents. He was noted to have a low glucose in the ED. Will monitor glucose levels q4. His speech was slightly slurred. Bilateral hand grasp normal, patient ambulating in ER. In no acute distress. ER course was notable for: (1) glucose 70 (2) head ct negative (3) ammonia level elevated Recent Travel: PAST MEDICAL HISTORY: PAST SURGICAL HISTORY: Social History: Smoking: denies Alcohol: denies Drugs: denies Family History: Allergies No Known Allergies Allergy (Verified 03/08/18 13:33) HOME MEDICATIONS: Home Medications Medication Instructions Recorded Olanzapine [Zyprexa -] 10 mg PO HS 03/05/18 Sertraline HCl [Zoloft] 25 mg PO DAILY 03/05/18 Divalproex Sodium [Depakote ER] 1,500 mg PO DAILY 03/08/18 PHYSICAL EXAMINATION Vital Signs - 24 hr 03/08/18 12:43 Temperature 99.1 F Pulse Rate 83 Respiratory 16 Rate Blood Pressure 101/77 O2 Sat by Pulse 100 Oximetry (%) GENERAL: Awake, lethargic, answers questions appropriately HEAD: Normal with no signs of trauma. EYES: Pupils equal, round and reactive to light, extraocular movements intact, sclera anicteric, conjunctiva clear. No lid lag. EARS, NOSE, THROAT: Ears normal, nares patent, oropharynx clear without exudates. Moist mucous membranes. NECK: Normal range of motion, supple without lymphadenopathy, JVD, or masses. LUNGS: Breath sounds equal, clear to auscultation bilaterally. No wheezes, and no crackles. No accessory muscle use. HEART: Regular rate and rhythm, normal S1 and S2 without murmur, rub or gallop. ABDOMEN: denies abdominal pain MUSCULOSKELETAL: No CVA tenderness. UPPER EXTREMITIES: No peripheral edema. LOWER EXTREMITIES: No peripheral edema. NEUROLOGICAL: speech slightly slurred, facial symmetry, bilateral upper arms and legs equal strength. Normal gait. PSYCHIATRIC: Cooperative. SKIN: Warm, dry, normal turgor, no rashes or lesions noted, normal capillary refill. Laboratory Results - last 24 hr 03/08/18 03/08/18 03/08/18 14:00 14:00 14:00 WBC 10.6 H D RBC 5.57 Hgb 13.3 D Hct 42.8 MCV 76.8 L MCH 23.9 L MCHC 31.1 L RDW 14.7 Plt Count 173 MPV 7.6 Absolute Neuts (auto) 7.8 Neutrophils % 73.6 Lymphocytes % 18.7 Monocytes % 5.6 Eosinophils % 1.1 Basophils % 1.0 Nucleated RBC % 0 Sodium 140 Potassium 4.2 Chloride 103 Carbon Dioxide 35 H D Anion Gap 2 L BUN 10 Creatinine 1.2 Creat Clearance w eGFR > 60 Random Glucose 70 L Calcium 9.2 Phosphorus 2.5 Magnesium 1.7 L Total Bilirubin 0.6 AST 14 L ALT 17 Alkaline Phosphatase 67 Creatine Kinase 94 Troponin I < 0.02 Total Protein 7.6 D Albumin 3.4 Vitamin B12 523 TSH 0.46 Salicylates < 1.70 Acetaminophen < amr Alcohol, Quantitative < 5.0 ASSESSMENT/PLAN: Patient is a 57 year old male with a significant past medical history of polysubstance abuse (cocaine, opiates, marijuana, ETOH) and seizure disorder. He was sent from [facility] for increased lethargy and weakness that was noted today at the facility. Patient is on the methadone detox program but unable to participate secondary to lethargy. Patient denies any drug use, denies any seizure activity. Last seizure was 6 months ago. Patient further reports generalized body pain, worse than his usual withdrawals symptoms. He also has been nauseated and more confused than normal, and has abdominal pain. He denies any hallucinations, or other symptoms. His most recent depakote level was taken on 03/07 and was <3.0. His ammonia level this morning was above 60. EKG shows NSR with t wave abnormality. Head CT negative. Will order urine utox , and hold sedating agents. He was noted to have a low glucose in the ED. Will monitor glucose levels q4. His speech was slightly slurred. Bilateral hand grasp normal, patient ambulating in ER. In no acute distress. CIWA negative. Neuro Acute Metabolic Encephalopathy of unclear etiology Seizure vs. Drug use or withdrawal vs hypoglycemic episodes Head CT negative and noted to have low glucose on presentation Denies recent drug use, denies seizure activity last seizure 6 months ago, tonic clonic as per patient Plan: Monitor mental status with neuro checks q4 Seizure precautions BGMs q4 Monitor ammonia levels, was >60 at [facility] Lactulose now Rule out acute infection>blood and urine cultures ordered Brain MRI Neuro consult psyche Acute ETOH withdrawal/IV drug use hx patient on Librium protocol at [facility]> Will hold secondary to lethargy and restart if CIWA elevated or becomes symptomatic. Currently not in any w/drawal. Given banana bag in ED On Methadone Will order Ativan 0.5mg prn for any seizure activity Folate, thiamine FEN ns @ 50cc/hr monitor electrolytes low salt diet full code Visit type - Emergency Visit Emergency Visit: Yes ED Registration Date: 03/08/18 Care time: The patient presented to the Emergency Department on the above date and was hospitalized for further evaluation of their emergent condition. - New Patient This patient is new to me today: Yes Date on this admission: 03/08/18 - Critical Care Critical Care patient: No Hospitalist Screening - Colonoscopy Questionnaire Colonoscopy Questionnaire: Colonoscopy Questionnaire - Patient: 50 - 75 years old and never had a screening colonoscopy: Unknown History of colon or rectal polyps, or CA: Unknown History of IBD, Crohn's disease or UC: Unknown History of abdominal radiation therapy as a child: Unknown - Relative: 1 with colon or rectal CA, or polyps at age 60 or younger: Unknown Colon or rectal CA diagnosed at age 45 or younger: Unknown Multiple relatives with colon or rectal CA: Unknown - Outcome: Screening Result: Negative Screen
--- NOTE | 2018-03-08 17:44 | EKG ---
Test Reason : Blood Pressure : / mmHG Vent. Rate : 080 BPM Atrial Rate : 080 BPM P-R Int : 132 ms QRS Dur : 090 ms QT Int : 358 ms P-R-T Axes : 065 034 006 degrees QTc Int : 412 ms NORMAL SINUS RHYTHM NONSPECIFIC T WAVE ABNORMALITY ABNORMAL ECG WHEN COMPARED WITH ECG OF 02-JAN-2018 21:48, NONSPECIFIC T WAVE ABNORMALITY NOW EVIDENT IN INFERIOR LEADS NONSPECIFIC T WAVE ABNORMALITY NOW EVIDENT IN LATERAL LEADS Confirmed by CASPER TAN MD ([id number]) on 03/08/2018 5:43:47 PM Referred By: Confirmed By:CASPER TAN MD
[2018-03-08 17:50] LABS: ANISOCYTOSIS 1+; MACROCYTOSIS 1+; PLATELET ESTIMATE ADEQUATE
[2018-03-08] MEDS ORDERED: LACTULOSE 20 GM/30 ML UDC (FOR ORAL USE ONLY) PO ONE ×2 (18:15→18:45)
[2018-03-08] MEDS ORDERED: LORazepam 2 MG/ML SDV VIAL IVPUSH PRN (18:21)
[2018-03-08] MEDS ORDERED: SODIUM CHLORIDE 1,000 ML IV SCH (18:30)
[2018-03-08] MEDS ORDERED: LACTULOSE 20 GM/30 ML UDC (FOR ORAL USE ONLY) ONE (18:47)
[2018-03-08] MEDS ORDERED: LACTULOSE 20 GM/30 ML UDC (FOR ORAL USE ONLY) PO PRN (21:10)
[2018-03-08] MEDS ORDERED: MAGNESIUM SULF 50% (8.12 MEQ/2 ML-1 GM VIAL) IVPB ONE (21:18)
[2018-03-09] MEDS: LACTULOSE 20 GM/30 ML UDC (FOR ORAL USE ONLY) PO SCH ×2 (04:02→06:50)
[2018-03-09] MEDS ORDERED: LACTULOSE 20 GM/30 ML UDC (FOR ORAL USE ONLY) ONE ×2 (04:04→06:56)
[2018-03-09 04:22] VITALS: BP 113/56; PULSE 67; TEMP 98.3
[2018-03-09 05:26] LABS: COCAINE, UR NEGATIVE ng/ml (CUTOFF=300); OPIATES, URI NEGATIVE ng/ml (CUTOFF=300); PHENCYCLIDINE,URINE NEGATIVE ng/ml (CUTOFF=25); URINE AMPHETAMINES NEGATIVE ng/ml (CUTOFF=500); URINE BARBITURATES NEGATIVE ng/ml (CUTOFF=200)
[2018-03-09 05:27] LABS: URINE BENZODIAZEPINES POSITIVE ng/ml (CUTOFF=200)
[2018-03-09 05:28] LABS: METHADONE, UR POSITIVE ng/ml (CUTOFF=300)
[2018-03-09 05:45] LABS: URINE APPEARANCE CLEAR; URINE BILIRUBIN NEGATIVE (<2.0 mg/dL); URINE COLOR YELLOW; URINE GLUCOSE (UA) NEGATIVE (NEGATIVE); URINE KETONE NEGATIVE (NEGATIVE); URINE LEUK ESTERASE NEGATIVE (NEGATIVE); URINE NITRITE NEGATIVE (NEGATIVE); URINE PROTEIN NEGATIVE (NEGATIVE); URINE UROBILINOGEN 4.0 E.U/dl mg/dL (0.2-1.0)
[2018-03-09 07:20] LABS: CHOLESTEROL 89 mg/dL (50-200); HDL CHOLESTEROL 73 mg/dL (40-60); TRIGLYCERIDES 39 mg/dL (35-160)
[2018-03-09 09:31] LABS: HEMATOCRIT 41.4 % (35.4-49); HEMOGLOBIN 12.9 GM/dL (11.7-16.9); MCH 24.1 pg (25.7-33.7); MCHC 31.2 g/dl (32.0-35.9); MEAN CELL VOLUME 77.1 fl (80-96); MEAN PLT VOLUME 7.8 fl (7.5-11.1); PLATELET COUNT 152 K/MM3 (134-434); RBC 5.37 M/mm3 (4.00-5.60); RDW 14.8 % (11.9-15.9); WHITE BLOOD COUNT 8.2 K/mm3 (4.0-10.0)
[2018-03-09 09:54] LABS: CHLORIDE 106 mmol/L (98-107); POTASSIUM 4.7 mmol/L (3.5-5.1); SODIUM 143 mmol/L (136-145)
[2018-03-09] MEDS ORDERED: FOLIC ACID 1 MG TABLET (FP) PO SCH (10:00)
[2018-03-09] MEDS ORDERED: THIAMINE HCL 100 MG TABLET (FP) PO SCH (10:00)
[2018-03-09] MEDS ORDERED: DIVALPROEX NA *ER* EXTEND REL 500 MG TABLET.SA (FP) PO SCH (10:00)
[2018-03-09 10:22] LABS: ANION GAP 5 (8-16); BLOOD UREA NITROGEN 9 mg/dL (7-18); CALCIUM 8.9 mg/dL (8.5-10.1); CO2 32 mmol/L (21-32); CREATININE 1.2 mg/dL (0.7-1.3); GLUCOSE,RANDOM 78 mg/dL (74-106); MAGNESIUM 1.9 mg/dL (1.8-2.4)
[2018-03-09] MEDS ORDERED: FOLIC ACID 1 MG TABLET (FP) ONE (10:48)
--- NOTE | 2018-03-09 11:24 | CON.NEURO ---
Consult Consult Specialty:: neurology Reason for Consultation:: ams - History of Present Illness History of Present Illness: Patient is a 57 year old male with a significant past medical history of polysubstance abuse (cocaine, opiates, marijuana, ETOH) and seizure disorder. He was sent from [facility] for increased lethargy and weakness that was noted today at the facility. Patient is on the methadone detox program but unable to participate secondary to lethargy and also on a librium taper for ETOH abuse. Patient denies any drug use, denies any seizure activity. Last seizure was 6 months ago. Patient further reports generalized body pain, worse than his usual withdrawals symptoms. He also has been nauseated and more confused than normal, and has abdominal pain. He denies any hallucinations, or other symptoms. His most recent depakote level was taken on 03/07 and was <3.0. His ammonia level this morning was above 60. Pt was d/c home before seen. - Alcohol/Substance Use Hx Alcohol Use: No - Smoking History Smoking history: Unknown if ever smoked Have you smoked in the past 12 months: No Aproximately how many cigarettes per day: 20 Home Medications - Allergies Allergies/Adverse Reactions: Allergies Allergy/AdvReac Type Severity Reaction Status Date / Time No Known Allergies Allergy Verified 03/08/18 13:33 - Home Medications Home Medications: Ambulatory Orders Olanzapine [ZyPREXA -] 10 mg PO HS 03/05/18 Sertraline HCl [Zoloft] 25 mg PO DAILY 03/05/18 Divalproex Sodium [Depakote ER] 1,500 mg PO DAILY 03/08/18 Physical Exam-Neuro Vital Signs: Vital Signs Temperature 98.3 F 03/09/18 04:21 Pulse Rate 67 03/09/18 04:21 Respiratory Rate 17 03/09/18 04:21 Blood Pressure 113/56 03/09/18 04:21 O2 Sat by Pulse Oximetry (%) 99 03/09/18 04:21 Labs: CBC, BMP 03/09/18 09:10 03/09/18 09:10
--- NOTE | 2018-03-09 18:52 | DS ---
Physical Exam: SUBJECTIVE: Patient seen and examined. Feels fine, does not want to be in hospital. Speech clear, ambulating without difficulty. OBJECTIVE: Vital Signs Period Temp Pulse Resp BP Sys/Meyers Pulse Ox Last 24 Hr 98.3 F-99.2 F 59-67 16-17 106-113/56-63 99 PE Neuro: alert, awake, cn 2-12intact Pulm: CTAB CV: s1 s2 rrr Abd: s nt nd + bs Ext: Warm, no le edema Laboratory Results - last 24 hr 03/08/18 03/08/18 03/08/18 20:30 20:40 21:04 WBC RBC Hgb Hct MCV MCH MCHC RDW Plt Count MPV Sodium Potassium Chloride Carbon Dioxide Anion Gap BUN Creatinine Creat Clearance w eGFR POC Glucometer [id number] Random Glucose Hemoglobin A1c % Calcium Magnesium Ammonia 76.6 H Troponin I < 0.02 Triglycerides Cholesterol Total LDL Cholesterol HDL Cholesterol Urine Color Urine Appearance Urine pH Ur Specific [place] Urine Protein Urine Glucose (UA) Urine Ketones Urine Blood Urine Nitrite Urine Bilirubin Urine Urobilinogen Ur Leukocyte Esterase Opiates Screen Methadone Screen Barbiturate Screen Phencyclidine Screen Ur Amphetamines Screen MDMA (Ecstasy) Screen Benzodiazepines Screen Cocaine Screen U Marijuana (THC) Screen 03/09/18 03/09/18 03/09/18 04:55 04:55 06:15 WBC RBC Hgb Hct MCV MCH MCHC RDW Plt Count MPV Sodium Potassium Chloride Carbon Dioxide Anion Gap BUN Creatinine Creat Clearance w eGFR POC Glucometer Random Glucose Hemoglobin A1c % Calcium Magnesium Ammonia 43.8 H Troponin I Triglycerides Cholesterol Total LDL Cholesterol HDL Cholesterol Urine Color Yellow Urine Appearance Clear Urine pH 6.0 Ur Specific [place] 1.015 Urine Protein Negative Urine Glucose (UA) Negative Urine Ketones Negative Urine Blood Negative Urine Nitrite Negative Urine Bilirubin Negative Urine Urobilinogen 4.0 e.u/dl Ur Leukocyte Esterase Negative Opiates Screen Negative Methadone Screen Positive Barbiturate Screen Negative Phencyclidine Screen Negative Ur Amphetamines Screen Negative MDMA (Ecstasy) Screen Negative Benzodiazepines Screen Positive Cocaine Screen Negative U Marijuana (THC) Screen Negative 03/09/18 03/09/18 03/09/18 06:15 06:15 09:10 WBC 8.2 RBC 5.37 Hgb 12.9 Hct 41.4 MCV 77.1 L MCH 24.1 L MCHC 31.2 L RDW 14.8 Plt Count 152 MPV 7.8 Sodium Potassium Chloride Carbon Dioxide Anion Gap BUN Creatinine Creat Clearance w eGFR POC Glucometer Random Glucose Hemoglobin A1c % 4.6 L Calcium Magnesium Ammonia Troponin I Triglycerides 39 Cholesterol 89 Total LDL Cholesterol 17 HDL Cholesterol 73 H Urine Color Urine Appearance Urine pH Ur Specific [place] Urine Protein Urine Glucose (UA) Urine Ketones Urine Blood Urine Nitrite Urine Bilirubin Urine Urobilinogen Ur Leukocyte Esterase Opiates Screen Methadone Screen Barbiturate Screen Phencyclidine Screen Ur Amphetamines Screen MDMA (Ecstasy) Screen Benzodiazepines Screen Cocaine Screen U Marijuana (THC) Screen 03/09/18 09:10 WBC RBC Hgb Hct MCV MCH MCHC RDW Plt Count MPV Sodium 143 Potassium 4.7 Chloride 106 Carbon Dioxide 32 Anion Gap 5 L BUN 9 Creatinine 1.2 Creat Clearance w eGFR > 60 POC Glucometer Random Glucose 78 Hemoglobin A1c % Calcium 8.9 Magnesium 1.9 Ammonia Troponin I Triglycerides Cholesterol Total LDL Cholesterol HDL Cholesterol Urine Color Urine Appearance Urine pH Ur Specific [place] Urine Protein Urine Glucose (UA) Urine Ketones Urine Blood Urine Nitrite Urine Bilirubin Urine Urobilinogen Ur Leukocyte Esterase Opiates Screen Methadone Screen Barbiturate Screen Phencyclidine Screen Ur Amphetamines Screen MDMA (Ecstasy) Screen Benzodiazepines Screen Cocaine Screen U Marijuana (THC) Screen HOSPITAL COURSE: Date of Admission:03/08/18 Date of Discharge: 03/09/18 Minutes to complete discharge: 36 Discharge Summary Reason For Visit: AMS, POLYSUBSTANCE DEPENDENCE Hospital Course: Hospital Course: Briefly, this 57 year old male with a significant past medical history of polysubstance abuse (cocaine, opiates, marijuana, ETOH) and seizure disorder sent from [facility] for increased lethargy and weakness. Pt is on the methadone detox program but, unable to participate secondary to lethargy and also on a librium taper for ETOH abuse. Patient denied any drug use, denies any seizure activity. Last seizure was 6 months ago. Patient further reported generalized body pain, worse than his usual withdrawals symptoms. He also has been nauseated and more confused than normal, and has abdominal pain. He denies any hallucinations, or other symptoms. His most recent depakote level was taken on 03/07 and was <3.0. His ammonia level this morning was above 60. EKG shows NSR with t wave abnormality. Head CT negative. urine detox neg for additional agents other than given. Lactulose given, ammonia level improved Pt seen in ED following admission feeling well, has returned to baseline, notes correct dose of his seizure medications. Likely cause of his AMS polypharmacy + elevated ammonia levels DC to [facility] to continue detox PT aware and agreeable Condition: Stable - Instructions Diet, Activity, Other Instructions: Please return to the ED for any new, persistent, or worsening symptoms. Follow up with your PCP in 1 week Resume home meds Referrals: Stanislav Valles MD [Primary Care Provider] - Disposition: TRANSFER ACUTE CARE/OTHER HOSP - Home Medications Comprehensive Discharge Medication List: Ambulatory Orders Olanzapine [ZyPREXA -] 10 mg PO HS 03/05/18 Sertraline HCl [Zoloft] 25 mg PO DAILY 03/05/18 Divalproex Sodium [Depakote ER] 1,500 mg PO DAILY 03/08/18 This patient is new to me today: Yes Date on this admission: 03/09/18 Emergency Visit: Yes ED Registration Date: 03/08/18 Care time: The patient presented to the Emergency Department on the above date and was hospitalized for further evaluation of their emergent condition. Critical Care patient: No - Discharge Referral Referred to [facility] Med [facility] No
--- NOTE | 2018-03-17 22:09 | EKG ---
Test Reason : Blood Pressure : / mmHG Vent. Rate : 065 BPM Atrial Rate : 065 BPM P-R Int : 130 ms QRS Dur : 092 ms QT Int : 366 ms P-R-T Axes : 066 048 027 degrees QTc Int : 380 ms NORMAL SINUS RHYTHM POSSIBLE LEFT ATRIAL ENLARGEMENT INCOMPLETE RIGHT BUNDLE BRANCH BLOCK BORDERLINE ECG WHEN COMPARED WITH ECG OF 08-MAR-2018 13:11, VENT. RATE HAS DECREASED Confirmed by YARELY LOOMIS, LESLEE ([id number]) on 03/17/2018 10:09:11 PM Referred By: Confirmed By:LESLEE PRITCHETT MD
== END 2018-03-09 12:13 | disposition short-term general hospital (02) | DRG 52 ==
LOC: JER 12:43 → JERBED 16:52
PROVIDERS: ADMIT Internal Medicine; ATTEND Nurse Practitioner Acute Care
DX: G93.41 Metabolic encephalopathy (principal); G40.909 Epilepsy, unspecified, not intractable, without status epilepticus; F11.20 Opioid dependence, uncomplicated; F14.20 Cocaine dependence, uncomplicated; Z91.14 Patient's other noncompliance with medication regimen; I45.10 Unspecified right bundle-branch block; F10.20 Alcohol dependence, uncomplicated; F12.20 Cannabis dependence, uncomplicated
CPT/HCPCS: 36415; 70450-TC; 71045-TC-FY; 80048; 80053; 80061; 80307; 81003; 82140; 82550; 82607; 82962; 83036; 83721; 83735; 84100; 84443; 84484; 85025; 85027; 87040; 87086; 93005; 93010; 93880-TC; 99284-25; J7030

== ENCOUNTER 2019-08-02 12:58 | Inpatient (IN) | payer OTHER ==
[2019-08-02 17:10] VITALS: BMI 19.0
--- NOTE | 2019-08-02 20:12 | HP ---
CIWA Score Nausea/Vomitin Muscle Tremors: 3 Anxiety: 3 Agitation: 4-Moderately Restless Paroxysmal Sweats: 2 Orientation: 0-Oriented Tacttile Disturbances: 0-None Auditory Disturbances: 0-None Visual Disturbances: 0-None Headache: 3-Moderate CIWA-Ar Total Score: 17 - Admission Criteria OASAS Guidelines: Admission for Medically Managed Detox: Requires at least one of the followin. CIWA greater than 12 2. Seizures within the past 24 hours 3. Delirium tremens within the past 24 hours 4. Hallucinations within the past 24 hours 5. Acute intervention needed for co occurring medical disorder 6. Acute intervention needed for co occurring psychiatric disorder 7. Severe withdrawal that cannot be handled at a lower level of care (continued vomiting, continued diarrhea, abnormal vital signs) requiring intravenous medication and/or fluids 8. Admitting History and Physical - Smoking History Smoking history: Unknown if ever smoked Have you smoked in the past 12 months: No Aproximately how many cigarettes per day: 20 - Alcohol/Substance Use Hx Alcohol Use: No Admission ROS [facility] - HPI Chief Complaint: Alcohol withdrawal symptoms Allergies/Adverse Reactions: Allergies Allergy/AdvReac Type Severity Reaction Status Date / Time No Known Allergies Allergy Verified 08/02/19 16:50 History of Present Illness: 59 years old male with a long history of alcohol and cocaine dependence is seeking admission to detox. Patient reports that his last detox was at [facility] and reports insignificant period of sobriety. He has medical history of Seizures, TB (Treated with INH) and Hep. C. He reports suicide attempt in 1982 and denies suicidal ideation at this time Exam Limitations: No Limitations - Ebola screening Have you traveled outside of the country in the last 21 days: No (N) Have you had contact with anyone from an Ebola affected area: No Do you have a fever: No - Review of Systems Constitutional: Chills, Loss of Appetite, Night Sweats, Changes in sleep EENT: reports: No Symptoms Reported Respiratory: reports: No Symptoms reported Cardiac: reports: No Symptoms Reported GI: reports: Poor Appetite, Poor Fluid Intake, Vomiting : reports: No Symptoms Reported Musculoskeletal: reports: Back Pain, Joint Pain Integumentary: reports: Dryness, Flushing Neuro: reports: Tremors Endocrine: reports: No Symptoms Reported Hematology: reports: No Symptoms Reported Psychiatric: reports: No Sypmtoms Reported, Anxious, Depressed Other Systems: Reviewed and Negative Patient History - Patient Medical History Hx Anemia: No Hx Asthma: No Hx Chronic Obstructive Pulmonary Disease (COPD): No Hx Cancer: No Hx Cardiac Disorders: No Hx Congestive Heart Failure: No Hx Hypertension: No Hx Hypercholesterolemia: No Hx Pacemaker: No HX Cerebrovascular Accident: No Hx Seizures: Yes (6 MONTHS AGO- ON DEPAKOTE) Hx Diabetes: No Hx Gastrointestinal Disorders: No Hx Liver Disease: Yes (Hep C (1999)) Hx Genitourinary Disorders: No Hx Sexually Transmitted Disorders: No Hx Renal Disease (ESRD): No Hx Thyroid Disease: No Hx Human Immunodeficiency Virus (HIV): No (Negative ) Hx Hepatitis C: Yes (Treated) Hx Depression: Yes (Not on medication) Hx Suicide Attempt: No (Denies suicidal ideation at this time) Hx Bipolar Disorder: No Hx Schizophrenia: Yes (Does not remember prescribed medication) - Patient Surgical History Past Surgical History: Yes Hx Neurologic Surgery: No Hx Cataract Extraction: No Hx Cardiac Surgery: No Hx Lung Surgery: No Hx Breast Surgery: No Hx Breast Biopsy: No Hx Abdominal Surgery: Yes (HERNIA REPAIR UNBILICAL 'S) Hx Appendectomy: No Hx Cholecystectomy: No Hx Genitourinary Surgery: No Hx Section: No Hx Orthopedic Surgery: No Anesthesia Reaction: No - PPD History Date: 01/04/18 - Reproductive History Patient is a Female of Child Bearing Age (11 -55 yrs old): No (male) - Smoking Cessation Smoking history: Unknown if ever smoked Have you smoked in the past 12 months: No Aproximately how many cigarettes per day: 20 Cigars Per Day: 0 Hx Chewing Tobacco Use: No Initiated information on smoking cessation: Yes 'Breaking Loose' booklet given: 08/02/19 - Substance & Tx. History Hx Alcohol Use: Yes Hx Substance Use: Yes Substance Use Type: Alcohol Hx Substance Use Treatment: Yes ([facility]) - Substances abused Alcohol Substance route: Oral Frequency: Daily Amount used: 3 PINTS OF SCOTCH AND 6 CANS OF BEER Age of first use: 18 Date of last use: 08/01/19 Cocaine Substance route: Inhalation Frequency: 3-6 times per week Amount used: 1-2 GRAMS Age of first use: 35 Date of last use: 08/01/19 Admission Physical Exam [facility] - Vital Signs Vital Signs: Vital Signs - 24 hr 08/02/19 17:07 Temperature 97.9 F Pulse Rate 70 Respiratory 20 Rate Blood Pressure 106/68 - Physical General Appearance: Yes: Moderate Distress, Tremorous, Irritable, Sweating, Anxious HEENTM: Yes: Within Normal Limits Respiratory: Yes: Lungs Clear, Normal Breath Sounds, No Respiratory Distress Neck: Yes: Supple, Thyroid tenderness Breast: Yes: Breast Exam Deferred Cardiology: Yes: Regular Rhythm, Regular Rate Abdominal: Yes: Normal Bowel Sounds Genitourinary: Yes: Within Normal Limits Back: Yes: Normal Inspection Extremities: Yes: Within Normal Limits, Tremors Neurological: Yes: Within Normal Limits, dietary services director II-XII NML intact, Alert, Respond to painful stimul Integumentary: Yes: Warm Lymphatic: Yes: Within Normal Limits - Diagnostic (1) Alcohol dependence with uncomplicated withdrawal Current Visit: No Status: Acute (2) Cannabis dependence Current Visit: No Status: Acute (3) Nicotine dependence Current Visit: No Status: Acute Qualifiers: Nicotine product type: cigarettes Substance use status: uncomplicated Qualified Code(s): F17.210 - Nicotine dependence, cigarettes, uncomplicated (4) Nicotine dependence Current Visit: Yes Status: Chronic Qualifiers: Nicotine product type: cigarettes Substance use status: uncomplicated Qualified Code(s): F17.210 - Nicotine dependence, cigarettes, uncomplicated (5) Seizure Current Visit: No Status: Chronic Cleared for Admission S - Detox or Rehab [facility] Level of Care: Medically Managed Detox Regimen/Protocol: Librium Breathalyzer - Breathalyzer Breathalyzer: 0 Urine Drug Screen - Test Device Lot number: [id number] Expiration date: 04/22/21 - Control Is test valid?: Yes - Results Drug screen NEGATIVE: No Urine drug screen results: JOSÉ MANUEL-Cocaine, BZO-Benzodiazepines Inpatient Rehab Admission - Rehab Decision to Admit Inpatient rehab admission?: No
[2019-08-02] MEDS ORDERED: NICOTINE POLACRILEX 2 MG GUM BUC PRN (20:30)
[2019-08-02] MEDS ORDERED: MELATONIN 5 MG TABLETS PO PRN (20:30)
[2019-08-02] MEDS ORDERED: MAG HYDROX/AL HYDROX/SIMETH 30 ML UNIT-DOSE CUP PO PRN (20:30)
[2019-08-02] MEDS ORDERED: METHOCARBAMOL 500 MG TABLET PO PRN (20:30)
[2019-08-02] MEDS ORDERED: MAGNESIUM CITRATE 300 ML BOTTLE PO PRN (20:30)
[2019-08-02] MEDS ORDERED: MENTHOL/PHENOL 1 EACH UD MM PRN (20:30)
[2019-08-02] MEDS ORDERED: BISMUTH SUBSALICYLATE 524 MG/30 ML UD PO PRN (20:30)
[2019-08-02] MEDS ORDERED: ACETAMINOPHEN 325 MG TABLET (FP) PO PRN ×2 (20:30)
[2019-08-02] MEDS ORDERED: hydrOXYzine PAMOATE 25 MG CAPSULE (FP) PO PRN (20:30)
[2019-08-02] MEDS ORDERED: IBUPROFEN 400 MG TABLET (FP) PO PRN (20:30)
[2019-08-02] MEDS ORDERED: MAGNESIUM HYDROX 2400MG/30ML ORAL SUSPENSION 30 ML CUP PO PRN (20:30)
[2019-08-02] MEDS ORDERED: chlordiazePOXIDE HCL 25 MG CAPSULE PO PRN (20:36)
[2019-08-02] MEDS: THIAMINE HCL 100 MG TABLET (FP) PO SCH (23:15)
[2019-08-02] MEDS: chlordiazePOXIDE HCL 25 MG CAPSULE PO SCH (23:15)
[2019-08-03] MEDS: chlordiazePOXIDE HCL 25 MG CAPSULE PO SCH ×4 (07:09→22:57)
[2019-08-03 09:38] LABS: HEMATOCRIT 43.1 % (35.4-49); HEMOGLOBIN 13.5 GM/dL (11.7-16.9); MCH 23.4 pg (25.7-33.7); MCHC 31.3 g/dl (32.0-35.9); MEAN CELL VOLUME 74.7 fl (80-96); MEAN PLT VOLUME 9.1 fl (7.5-11.1); PLATELET COUNT 151 K/MM3 (134-434); RBC 5.78 M/mm3 (4.00-5.60); RDW 15.8 % (11.9-15.9); WHITE BLOOD COUNT 3.6 K/mm3 (4.0-10.0)
[2019-08-03 10:10] LABS: ALBUMIN 3.2 g/dl (3.4-5.0); BILIRUBIN,TOTAL 0.8 mg/dL (0.2-1); BLOOD UREA NITROGEN 15.8 mg/dL (7-18); CALCIUM 8.9 mg/dL (8.5-10.1); CREATININE 1.2 mg/dL (0.55-1.3); POTASSIUM 4.2 mmol/L (3.5-5.1); TOT PROT 6.4 g/dl (6.4-8.2)
--- NOTE | 2019-08-03 10:18 | EKG ---
Test Reason : Blood Pressure : / mmHG Vent. Rate : 053 BPM Atrial Rate : 053 BPM P-R Int : 132 ms QRS Dur : 096 ms QT Int : 476 ms P-R-T Axes : 050 075 067 degrees QTc Int : 446 ms SINUS BRADYCARDIA OTHERWISE NORMAL ECG WHEN COMPARED WITH ECG OF 08-MAR-2018 14:00, T WAVE VARIATION Confirmed by LESLEE PRITCHETT MD ([id number]) on 08/03/2019 10:18:37 AM Referred By: Confirmed By:LESLEE PRITCHETT MD
[2019-08-03] MEDS: NICOTINE 14 MG/24 HOURS TOPICAL PATCH TD SCH (10:24)
[2019-08-03] MEDS: PRENATAL VITAMINS W/ FOLIC ACID TABLET (FP) PO SCH (10:26)
--- NOTE | 2019-08-03 12:03 | PN ---
S CIWA - CIWA Score Nausea/Vomitin-No Nausea/No Vomiting Muscle Tremors: 2 Anxiety: 2 Agitation: 2 Paroxysmal Sweats: 3 Orientation: 0-Oriented Tacttile Disturbances: 0-None Auditory Disturbances: 0-None Visual Disturbances: 0-None Headache: 1-Very Mild CIWA-Ar Total Score: 10 S Progress Note (SOAP) Subjective: sweats shakes irritable headache joint pain Objective: 08/03/19 12:02 Vital Signs Temperature 97.9 F 08/03/19 07:43 Pulse Rate 50 L 08/03/19 07:43 Respiratory Rate 18 08/03/19 07:43 Blood Pressure 110/55 L 08/03/19 07:43 O2 Sat by Pulse Oximetry (%) Laboratory Tests 08/03/19 08/03/19 08/03/19 07:50 07:50 07:50 WBC 3.6 L RBC 5.78 H Hgb 13.5 Hct 43.1 MCV 74.7 L MCH 23.4 L MCHC 31.3 L RDW 15.8 Plt Count 151 MPV 9.1 D Sodium 141 Potassium 4.2 Chloride 108 H Carbon Dioxide 29 Anion Gap 4 L BUN 15.8 Creatinine 1.2 Est GFR (CKD-EPI)AfAm 76.25 Est GFR (CKD-EPI)NonAf 65.79 Random Glucose 75 Calcium 8.9 Total Bilirubin 0.8 AST 25 ALT 23 Alkaline Phosphatase 88 Total Protein 6.4 Albumin 3.2 L RPR Titer Nonreactive labs noted aaox3 ambulating no acute distress Assessment: 08/03/19 12:03 withdrawals Plan: continue detox increase fluids motrin/tylenol prn
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
[2019-08-03] MEDS: THIAMINE HCL 100 MG TABLET (FP) PO SCH (22:57)
[2019-08-03] MEDS: OLANZapine 10 MG TABLET PO SCH (22:57)
[2019-08-04] MEDS: chlordiazePOXIDE HCL 25 MG CAPSULE PO SCH ×4 (06:52→22:22)
[2019-08-04] MEDS: NICOTINE 14 MG/24 HOURS TOPICAL PATCH TD SCH (10:45)
[2019-08-04] MEDS: PRENATAL VITAMINS W/ FOLIC ACID TABLET (FP) PO SCH (10:46)
--- NOTE | 2019-08-04 14:09 | PN ---
S CIWA - CIWA Score Nausea/Vomitin-No Nausea/No Vomiting Muscle Tremors: 3 Anxiety: 1-Mildly Anxious Agitation: 2 Paroxysmal Sweats: 1-Minimal Palms Moist Orientation: 0-Oriented Tacttile Disturbances: 0-None Auditory Disturbances: 0-None Visual Disturbances: 0-None Headache: 0-None Present CIWA-Ar Total Score: 7 BHS Progress Note (SOAP) Subjective: groggy sweats mild shakes Objective: 08/04/19 14:08 Vital Signs Temperature 97.4 F L 08/04/19 13:10 Pulse Rate 50 L 08/04/19 13:10 Respiratory Rate 18 08/04/19 13:10 Blood Pressure 102/57 L 08/04/19 13:10 O2 Sat by Pulse Oximetry (%) Laboratory Tests 08/03/19 08/03/19 08/03/19 07:50 07:50 07:50 WBC 3.6 L RBC 5.78 H Hgb 13.5 Hct 43.1 MCV 74.7 L MCH 23.4 L MCHC 31.3 L RDW 15.8 Plt Count 151 MPV 9.1 D Sodium 141 Potassium 4.2 Chloride 108 H Carbon Dioxide 29 Anion Gap 4 L BUN 15.8 Creatinine 1.2 Est GFR (CKD-EPI)AfAm 76.25 Est GFR (CKD-EPI)NonAf 65.79 Random Glucose 75 Calcium 8.9 Total Bilirubin 0.8 AST 25 ALT 23 Alkaline Phosphatase 88 Total Protein 6.4 Albumin 3.2 L RPR Titer Nonreactive labs noted aaox3 lying in bed no acute distress Assessment: 08/04/19 14:08 withdrawals Plan: hold librium until tomorrow increase fluids
[2019-08-04] MEDS: THIAMINE HCL 100 MG TABLET (FP) PO SCH (22:21)
[2019-08-04] MEDS: OLANZapine 10 MG TABLET PO SCH (22:21)
[2019-08-05] MEDS ORDERED: chlordiazePOXIDE HCL 10 MG CAPSULE PO PRN
[2019-08-05] MEDS: PRENATAL VITAMINS W/ FOLIC ACID TABLET (FP) PO SCH (10:20)
[2019-08-05] MEDS: NICOTINE 14 MG/24 HOURS TOPICAL PATCH TD SCH (10:20)
[2019-08-05] MEDS: chlordiazePOXIDE HCL 10 MG CAPSULE PO SCH ×3 (10:21→22:36)
--- NOTE | 2019-08-05 11:57 | PN ---
[facility] CIWA - CIWA Score Nausea/Vomitin-No Nausea/No Vomiting Muscle Tremors: 1-None Visible, but [place] Anxiety: 1-Mildly Anxious Agitation: 0-Normal Activity Paroxysmal Sweats: No Perspiration Orientation: 0-Oriented Tacttile Disturbances: 0-None Auditory Disturbances: 0-None Visual Disturbances: 0-None Headache: 0-None Present CIWA-Ar Total Score: 2 BHS Progress Note (SOAP) Subjective: tired Objective: 08/05/19 11:57 Vital Signs Temperature 97.9 F 08/05/19 09:18 Pulse Rate 67 08/05/19 09:18 Respiratory Rate 16 08/05/19 09:18 Blood Pressure 102/65 08/05/19 09:18 O2 Sat by Pulse Oximetry (%) aaox3 ambulating no acute distress Assessment: 08/05/19 11:57 mild to no withdrawals Plan: increase fluids continue detox d/c in am
[2019-08-05] MEDS: OLANZapine 10 MG TABLET PO SCH (22:36)
[2019-08-05] MEDS: THIAMINE HCL 100 MG TABLET (FP) PO SCH (22:36)
[2019-08-06] MEDS ORDERED: chlordiazePOXIDE HCL 10 MG CAPSULE PO SCH (05:00)
[2019-08-06] MEDS: chlordiazePOXIDE HCL 10 MG CAPSULE PO SCH (05:45)
[2019-08-06 05:57] VITALS: BP 127/50; PULSE 92; TEMP 97.3
--- NOTE | 2019-08-06 09:02 | DS ---
[facility] Detox Discharge Summary Admission Date: 08/02/19 Discharge Date: 08/06/19 - History Present History: Alcohol Dependence, Cannabis Dependence, Cocaine Dependence - Physical Exam Results Vital Signs: Vital Signs Temperature 97.3 F L 08/06/19 05:56 Pulse Rate 92 H 08/06/19 05:56 Respiratory Rate 16 08/06/19 05:56 Blood Pressure 127/50 L 08/06/19 05:56 O2 Sat by Pulse Oximetry (%) Pertinent Admission Physical Exam Findings: pt arrived in withdrawals - Treatment Hospital Course: Detox Protocol Followed, Detoxed Safely, Responded well, Discharged Condition Good, Rehab Referral Accepted Patient has Accepted a Rehab Referral to: referral provided - Medication Discharge Medications: Ambulatory Orders Divalproex Sodium [Depakote ER] 1,500 mg PO DAILY 03/08/18 - Diagnosis (1) Substance-induced sleep disorder Current Visit: Yes Status: Acute (2) Nicotine dependence Current Visit: Yes Status: Chronic Qualifiers: Nicotine product type: cigarettes Substance use status: uncomplicated Qualified Code(s): F17.210 - Nicotine dependence, cigarettes, uncomplicated (3) PTSD (post-traumatic stress disorder) Current Visit: Yes Status: Chronic (4) Schizoaffective disorder Current Visit: Yes Status: Chronic (5) Hepatitis C Current Visit: Yes Status: Resolved Qualifiers: Viral hepatitis chronicity: chronic Hepatic coma status: without hepatic coma Qualified Code(s): B18.2 - Chronic viral hepatitis C (6) Alcohol dependence with uncomplicated withdrawal Current Visit: Yes Status: Chronic (7) Altered mental state Current Visit: No Status: Acute Qualifiers: Altered mental status type: unspecified Qualified Code(s): R41.82 - Altered mental status, unspecified (8) Cannabis dependence, uncomplicated Current Visit: Yes Status: Acute (9) Cocaine dependence, uncomplicated Current Visit: No Status: Acute (10) Insomnia Current Visit: No Status: Acute (11) Nicotine dependence Current Visit: Yes Status: Chronic Qualifiers: Nicotine product type: cigarettes Substance use status: uncomplicated Qualified Code(s): F17.210 - Nicotine dependence, cigarettes, uncomplicated (12) Polysubstance (excluding opioids) dependence Current Visit: No Status: Acute (13) Substance induced mood disorder Current Visit: No Status: Acute (14) Anxiety Current Visit: No Status: Chronic (15) Bipolar disorder Current Visit: No Status: Chronic (16) Depression Current Visit: No Status: Chronic Qualifiers: Depression Type: unspecified Qualified Code(s): F32.9 - Major depressive disorder, single episode, unspecified (17) Seizure disorder Current Visit: No Status: Chronic - AMA Did Patient Leave Against Medical Advice: No
[2019-08-07] MEDS ORDERED: chlordiazePOXIDE HCL 10 MG CAPSULE PO ONE (05:00)
== END 2019-08-06 09:21 | disposition home or self-care (01) | DRG 774 ==
LOC: YASAS 12:58 → Y6N 20:43
PROVIDERS: ADMIT Allergy & Immunology; ATTEND Allergy & Immunology
PROC: HZ2ZZZZ Detoxification Services for Substance Abuse Treatment (ICD-10-PCS; principal; 2019-08-02)
DX: F10.230 Alcohol dependence with withdrawal, uncomplicated (principal); F14.20 Cocaine dependence, uncomplicated; F12.20 Cannabis dependence, uncomplicated; F17.210 Nicotine dependence, cigarettes, uncomplicated; F19.24 Other psychoactive substance dependence with psychoactive substance-induced mood disorder; F19.282 Other psychoactive substance dependence with psychoactive substance-induced sleep disorder; F31.9 Bipolar disorder, unspecified; F25.9 Schizoaffective disorder, unspecified; F43.10 Post-traumatic stress disorder, unspecified; F41.9 Anxiety disorder, unspecified; R56.1 Post traumatic seizures; B18.2 Chronic viral hepatitis C; R41.82 Altered mental status, unspecified; G40.909 Epilepsy, unspecified, not intractable, without status epilepticus
CPT/HCPCS: 36415; 80053; 85027; 86593; 93005; 93010

== ENCOUNTER 2019-09-20 12:17 | Inpatient (IN) | payer OTHER ==
[2019-09-20 13:03] VITALS: BMI 19.4
--- NOTE | 2019-09-20 16:06 | HP ---
CIWA Score Nausea/Vomitin-No Nausea/No Vomiting Muscle Tremors: 1-None Visible, but [place] Anxiety: 3 Agitation: 1-Slight > Activity Paroxysmal Sweats: No Perspiration Orientation: 2-Disoriented Date<2 days Tacttile Disturbances: 0-None Auditory Disturbances: 1-Very Mild Visual Disturbances: 0-None Headache: 3-Moderate CIWA-Ar Total Score: 11 - Admission Criteria OASAS Guidelines: Admission for Medically Managed Detox: Requires at least one of the followin. CIWA greater than 12 2. Seizures within the past 24 hours 3. Delirium tremens within the past 24 hours 4. Hallucinations within the past 24 hours 5. Acute intervention needed for co occurring medical disorder 6. Acute intervention needed for co occurring psychiatric disorder 7. Severe withdrawal that cannot be handled at a lower level of care (continued vomiting, continued diarrhea, abnormal vital signs) requiring intravenous medication and/or fluids 8. Patient presents the following: Acute intervention needed for co-occurring med or psych disorder (Referred from [facility] Psych) Admission Criteria Met: Admission criteria met Admitting History and Physical - Smoking History Smoking history: Unknown if ever smoked Have you smoked in the past 12 months: No Aproximately how many cigarettes per day: 20 - Alcohol/Substance Use Hx Alcohol Use: Yes Admission ROS BHS - HPI Chief Complaint: "I'm here to change my life. I'm tired of running from myself" Allergies/Adverse Reactions: Allergies Allergy/AdvReac Type Severity Reaction Status Date / Time No Known Allergies Allergy Verified 09/20/19 12:48 History of Present Illness: 59 yo presents w/ alcohol withdrawal symptoms seeking detoxed. Discharged from [facility] ED today. Was seen for hearing voices, c/o headache and chest pain. Patient psychiatrically cleared to attend detox. Unable to get copy of EKG from ED. [facility] level (16.1) and Troponin T (neg) from Ms. Schaeffer. DAVID: 0.0 UTox: + JOSÉ MANUEL/MOP Last detox in [facility] 1 month ago - states stayed sober for three weeks. Hx: Seizures - last 2 years ago. States r/t depression. Denies blackouts or overdoses. PATIENT NOTED TO HAVE HR: 44 AND MURMUR ON PE. PATIENT DENIES CHEST PAIN/SOB/DIZZINESS. NO PERIPHERAL EDEMA. EKG CHANGES NOTED FROM 08/02/19: CURRENT EKG NOW SHOWS INCOMPLETE RBBB W/ T- WAVE ABNORMALITY. SENDING TO [facility] ED FOR EVALUATION/CLEARANCE. REPORT GIVEN TO DR. LEOS. PATIENT TO RETURN TO [facility] ONCE CLEARED. PATIENT TRANSPORTED VIA AMBULANCE. Alcohol use since age 18. Currently drinks 3 pints/day. Last drink yesterday. States relapsed and started drinking 3 weeks ago. Opiates use since age 50. States rarely uses. States only tried yesterday. Cocaine use since age 35. Currently uses 2-3 gms/day. Smokes and sniffs. Nicotine use since age 18. Smokes 1 PPD. PMHx:Seizures (on Depakote); MHHx:Bipolar, PTSD, Depression. Denies thoughts of harming self or others. States on Depakote for MH issues. States always hears voices - voices become loud when Depakote level is low. SHx:Domiciled. VA Disability. Has current legal issues. Search Terms: Alvaro Ellis, 1960 Search Date: 09/20/2019 03:56:59 PM The Drug Utilization Report below displays all of the controlled substance prescriptions, if any, that your patient has filled in the last twelve months. The information displayed on this report is compiled from pharmacy submissions to the Department, and accurately reflects the information as submitted by the pharmacies. This report was requested by: Maritza Cho | Reference #: [id number] There are no results for the search terms that you entered. Exam Limitations: No Limitations - Ebola screening Have you traveled outside of the country in the last 21 days: No (N) Have you had contact with anyone from an Ebola affected area: No Have you been sick,other than usual withdrawal symptoms: No Do you have a fever: No - Review of Systems Constitutional: Changes in sleep (Difficulty falling and staying asleep - states usure of name of meds taking), Unintentional Wgt. Loss EENT: reports: Blurred Vision, Other (unable to smell) Respiratory: reports: No Symptoms reported Cardiac: reports: Chest Pain (r/t drug use. Denies chest pain at this time) GI: reports: Constipated (No BM x 2 days) : reports: No Symptoms Reported Musculoskeletal: reports: No Symptoms Reported Integumentary: reports: Other ([place] on (R) 4th toe - painful.) Neuro: reports: Headache (Generalized achy headache. "7"), Seizure (Onmeds) Endocrine: reports: Increased Thirst Hematology: reports: No Symptoms Reported Psychiatric: reports: Orientated x3 (Unsure of day), Anxious, Depressed (Denies thoughts of harming self or others), other (Auditory hallucinations.) Patient History - Patient Medical History Hx Anemia: No Hx Asthma: No Hx Chronic Obstructive Pulmonary Disease (COPD): No Hx Cancer: No Hx Cardiac Disorders: No Hx Congestive Heart Failure: No Hx Hypertension: No Hx Hypercholesterolemia: No Hx Pacemaker: No HX Cerebrovascular Accident: No Hx Seizures: Yes (6 MONTHS AGO- ON DEPAKOTE) Hx Diabetes: No Hx Gastrointestinal Disorders: No Hx Liver Disease: Yes (Hep C (1999)) Hx Genitourinary Disorders: No Hx Sexually Transmitted Disorders: No Hx Renal Disease (ESRD): No Hx Thyroid Disease: No Hx Human Immunodeficiency Virus (HIV): No (Negative ) Hx Hepatitis C: Yes (Treated) Hx Depression: Yes (Not on medication) Hx Suicide Attempt: No (Denies suicidal ideation at this time) Hx Bipolar Disorder: No Hx Schizophrenia: Yes (Does not remember prescribed medication) - Patient Surgical History Past Surgical History: Yes Hx Neurologic Surgery: No Hx Cataract Extraction: No Hx Cardiac Surgery: No Hx Lung Surgery: No Hx Breast Surgery: No Hx Breast Biopsy: No Hx Abdominal Surgery: Yes (HERNIA REPAIR UNBILICAL 80'S) Hx Appendectomy: No Hx Cholecystectomy: No Hx Genitourinary Surgery: No Hx Section: No Hx Orthopedic Surgery: No Anesthesia Reaction: No - PPD History Previous Implant?: Yes (States took INH and B-6 ) Documented Results: Positive w/o proof Implanted On Prior [facility] Admission?: No Date: 01/04/18 PPD to be Administered?: No - Smoking Cessation Smoking history: Current every day smoker Have you smoked in the past 12 months: Yes Aproximately how many cigarettes per day: 20 Cigars Per Day: 0 Hx Chewing Tobacco Use: No Initiated information on smoking cessation: Yes 'Breaking Loose' booklet given: 09/20/19 - Substance & Tx. History Hx Alcohol Use: Yes Hx Substance Use: Yes Substance Use Type: Alcohol, Cocaine, Heroin Hx Substance Use Treatment: Yes (detox, rehab, ) - Substances abused Alcohol Substance route: Oral Frequency: Daily Amount used: 3 PINTS OF SCOTCH , 6 CANS OF BEER Age of first use: 18 Date of last use: 09/19/19 Cocaine Substance route: Inhalation Frequency: Daily Amount used: 203 grams/day Age of first use: 35 Date of last use: 09/19/19 Heroin Substance route: Inhalation Frequency: 1-3 times last 30 days Amount used: 1/2 bag Age of first use: 45 Date of last use: 09/19/19 Admission Physical Exam S - Vital Signs Vital Signs: Vital Signs - 24 hr 09/20/19 09/20/19 12:42 14:16 Temperature 97.3 F L 97.3 F L Pulse Rate 54 L 54 L Respiratory 18 18 Rate Blood Pressure 122/67 122/67 - Physical General Appearance: Yes: Mild Distress, Thin, Irritable, Anxious HEENTM: Yes: EOMI, Hearing grossly Normal, Normocephalic, Normal Voice, ARMEN, Pharynx Normal Respiratory: Yes: Lungs Clear (Pulse Ox = 99 &), Normal Breath Sounds, No Respiratory Distress Neck: Yes: No masses,lesions,Nodules, Supple Breast: Yes: Breast Exam Deferred Cardiology: Yes: Regular Rhythm, Bradycardia (HR: 44), Murmur Abdominal: Yes: Non Tender, Flat, Soft, Increased Bowel Sounds Genitourinary: Yes: Within Normal Limits Back: Yes: Normal Inspection Musculoskeletal: Yes: full range of Motion, Gait Steady Extremities: Yes: Normal Capillary Refill, Other (Tender michelle elevation 4th grat toe of (R) foot. Skin intact. No discoloration.) Neurological: Yes: case maker II-XII NML intact, Alert, Motor Strength 5/5, Normal Response (Agitated/malu speech) Integumentary: Yes: Normal Color, Warm Lymphatic: Yes: Within Normal Limits - Diagnostic (1) Murmur, cardiac Current Visit: Yes Status: Acute (2) Bradycardia Current Visit: Yes Status: Chronic Comment: SLOWER THAN PRIOR READINGS (3) Opioid abuse Current Visit: Yes Status: Chronic Comment: Rare use. (4) Callus of foot Current Visit: Yes Status: Chronic Comment: 4th great toe (5) Cocaine dependence, uncomplicated Current Visit: Yes Status: Chronic (6) Alcohol dependence with uncomplicated withdrawal Current Visit: Yes Status: Acute (7) Nicotine dependence Current Visit: Yes Status: Chronic Qualifiers: Nicotine product type: cigarettes Substance use status: uncomplicated Qualified Code(s): F17.210 - Nicotine dependence, cigarettes, uncomplicated (8) History of seizure disorder Current Visit: Yes Status: Chronic (9) Insomnia Current Visit: Yes Status: Chronic Qualifiers: Insomnia type: unspecified Qualified Code(s): G47.00 - Insomnia, unspecified (10) Hallucinations Current Visit: Yes Status: Chronic Comment: Voices are vague, w/o commands (11) Abnormal EKG Current Visit: Yes Status: Acute Cleared for Admission S - Detox or Rehab [facility] Level of Care: Medically Managed Detox Regimen/Protocol: Librium Claeared for Rehab Admission: No Breathalyzer - Breathalyzer Breathalyzer: 0 Urine Drug Screen - Test Device Lot number: [id number] Expiration date: 04/22/21 - Control Is test valid?: Yes - Results Drug screen NEGATIVE: No Urine drug screen results: JOSÉ MANUEL-Cocaine, MOP-Opiates Inpatient Rehab Admission - Rehab Decision to Admit Inpatient rehab admission?: No
[2019-09-21] MEDS ORDERED: P-EPHED 60MG/TRIPROLIDI 2.5MG TABLET PO PRN (01:06)
[2019-09-21] MEDS ORDERED: ONDANSETRON *ODT* 4 MG TABLET SL PRN (01:06)
[2019-09-21] MEDS ORDERED: hydrOXYzine PAMOATE 25 MG CAPSULE (FP) PO PRN (01:06)
[2019-09-21] MEDS ORDERED: MAG HYDROX/AL HYDROX/SIMETH 30 ML UNIT-DOSE CUP PO PRN (01:06)
[2019-09-21] MEDS ORDERED: ACETAMINOPHEN 325 MG TABLET (FP) PO PRN ×2 (01:06)
[2019-09-21] MEDS ORDERED: guaiFENesin 200 MG/10 ML 10 ML UNIT-DOSE CUPS PO PRN (01:06)
[2019-09-21] MEDS ORDERED: chlordiazePOXIDE HCL 10 MG CAPSULE PO PRN (01:06)
[2019-09-21] MEDS ORDERED: MENTHOL/PHENOL 1 EACH UD MM PRN (01:06)
[2019-09-21] MEDS ORDERED: MAGNESIUM CITRATE 300 ML BOTTLE PO PRN (01:06)
[2019-09-21] MEDS ORDERED: METHOCARBAMOL 500 MG TABLET PO PRN (01:06)
[2019-09-21] MEDS ORDERED: BISMUTH SUBSALICYLATE 524 MG/30 ML UD PO PRN (01:06)
[2019-09-21] MEDS ORDERED: NICOTINE POLACRILEX 2 MG GUM BUC PRN (01:06)
[2019-09-21] MEDS ORDERED: MAGNESIUM HYDROX 2400MG/30ML ORAL SUSPENSION 30 ML CUP PO PRN (01:06)
--- NOTE | 2019-09-21 01:20 | PN ---
[facility] Progress Note Note: RETURNS FROM [id number] AFTER BEING MEDICALLY CLEARED FOR ABN EKG. CLIENT IS A/O X3 NAD- ADMIT TO DETOX LIBRIUM TAPER CLIENT REPORTS HEROIN "IS NOT MY THING" EPISODIC USE CLIENT AWARE WILL DETOX FROM ALCOHOL ONLY- CLIENT AGREES WITH PLAN. Vital Signs Temperature 96.4 F L 09/21/19 01:21 Pulse Rate 50 L 09/21/19 01:21 Respiratory Rate 18 09/21/19 01:21 Blood Pressure 119/83 09/21/19 01:21 O2 Sat by Pulse Oximetry (%) - Medical Decision Making 09/20/19 19:44 59y M hx of seizure, bipolar, schizophrenia sent from [facility] for evaluation of abnormal ekg. p has no complains, he did have an [facility] for chest pain a day o rso ago when he was in e streets but dnies any current complaints. exam unremarkable except for bradycarda hs ekg notd for a RBBB, this is unchanged from 2 ekgs again will ck basic labs will dc back to [facility] detox pt notes he is on kepakote er 1500mg, but hasnt taken it and it helps him with his schizophrenia and seizures - will give him his dose here. 09/20/19 19:47 09/20/19 20:35 will dc pt back t [facility] detox Heart Score/ECG Review - ECG Impressions Comment:: 09/20/19 19:47 Twelve-lead EKG was performed and reviewed by me. There is normal sinus rhythm rate of 42 incomplete rbbb
[2019-09-21] MEDS: chlordiazePOXIDE HCL 25 MG CAPSULE PO SCH ×3 (05:46→22:08)
--- NOTE | 2019-09-21 09:40 | PN ---
[facility] CIWA - CIWA Score Nausea/Vomitin Muscle Tremors: 2 Anxiety: 2 Agitation: 2 Paroxysmal Sweats: No Perspiration Orientation: 0-Oriented Tacttile Disturbances: 1-Very Mild Itch/Numbness Auditory Disturbances: 0-None Visual Disturbances: 0-None Headache: 2-Mild CIWA-Ar Total Score: 11 [facility] Progress Note (SOAP) Subjective: alert,irritable,anxious,interrupted sleep,tremor Objective: 09/21/19 09:38 Vital Signs Temperature 98.2 F 09/21/19 09:04 Pulse Rate 88 09/21/19 09:04 Respiratory Rate 18 09/21/19 09:04 Blood Pressure 142/88 09/21/19 09:04 O2 Sat by Pulse Oximetry (%) 09/21/19 09:38 Vital Signs Temperature 98.2 F 09/21/19 09:04 Pulse Rate 88 09/21/19 09:04 Respiratory Rate 18 09/21/19 09:04 Blood Pressure 142/88 09/21/19 09:04 O2 Sat by Pulse Oximetry (%) Assessment: 09/21/19 09:41 withdrawal symptom Plan: continue detox libroum regimen
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
[2019-09-21] MEDS: PRENATAL VITAMINS W/ FOLIC ACID TABLET (FP) PO SCH (10:24)
[2019-09-21] MEDS ORDERED: OLANZapine 10 MG TABLET PO ONE (11:35)
--- NOTE | 2019-09-21 11:38 | EKG ---
Test Reason : Blood Pressure : / mmHG Vent. Rate : 043 BPM Atrial Rate : 043 BPM P-R Int : 126 ms QRS Dur : 104 ms QT Int : 480 ms P-R-T Axes : 052 084 064 degrees QTc Int : 405 ms MARKED SINUS BRADYCARDIA INCOMPLETE RIGHT BUNDLE BRANCH BLOCK T WAVE ABNORMALITY, CONSIDER ANTERIOR ISCHEMIA ABNORMAL ECG WHEN COMPARED WITH ECG OF 02-AUG-2019 21:47, T WAVE VARIATION Confirmed by YARELY LOOMIS, LESLEE ([id number]) on 09/21/2019 11:38:02 AM Referred By: AUGUSTO Confirmed By:LESLEE PRITCHETT MD
[2019-09-21] MEDS: CYPROHEPTADINE HCL 4 MG TABLET PO SCH (12:00)
[2019-09-21] MEDS: MELATONIN 5 MG TABLETS PO PRN (22:08)
[2019-09-21] MEDS: THIAMINE HCL 100 MG TABLET (FP) PO SCH (22:09)
[2019-09-21] MEDS: OLANZapine 10 MG TABLET PO SCH (22:09)
[2019-09-21] MEDS: DIVALPROEX NA *ER* EXTEND REL 500 MG TABLET.SA (FP) PO SCH (22:09)
[2019-09-22] MEDS: chlordiazePOXIDE 5 MG CAPSULE PO SCH ×3 (05:38→21:20)
--- NOTE | 2019-09-22 09:52 | PN ---
S CIWA - CIWA Score Nausea/Vomitin-No Nausea/No Vomiting Muscle Tremors: 2 Anxiety: 3 Agitation: 0-Normal Activity Paroxysmal Sweats: 3 Orientation: 0-Oriented Tacttile Disturbances: 0-None Auditory Disturbances: 0-None Visual Disturbances: 0-None Headache: 2-Mild CIWA-Ar Total Score: 10 [facility] Progress Note (SOAP) Subjective: c/o anxiety, shakes, sweats, and headache. Objective: 09/22/19 09:52 Vital Signs 09/22/19 09/22/19 06:29 09:15 Temperature 97.7 F 98.1 F Pulse Rate 48 L 82 Respiratory 18 18 Rate Blood Pressure 124/75 122/79 Assessment: 09/22/19 09:52 AOX3, in no respiratory distress. Full ROM, ambulating in the unit. Withdrawal symptoms. Plan: continue detox.
[2019-09-22] MEDS: PRENATAL VITAMINS W/ FOLIC ACID TABLET (FP) PO SCH (10:29)
[2019-09-22] MEDS: CYPROHEPTADINE HCL 4 MG TABLET PO SCH ×2 (10:29→10:33)
[2019-09-22] MEDS: IBUPROFEN 400 MG TABLET (FP) PO PRN (10:32)
[2019-09-22] MEDS: MELATONIN 5 MG TABLETS PO PRN (21:21)
[2019-09-22] MEDS: OLANZapine 10 MG TABLET PO SCH (21:21)
[2019-09-22] MEDS: DIVALPROEX NA *ER* EXTEND REL 500 MG TABLET.SA (FP) PO SCH (21:21)
[2019-09-22] MEDS: THIAMINE HCL 100 MG TABLET (FP) PO SCH (21:21)
[2019-09-23] MEDS ORDERED: chlordiazePOXIDE HCL 10 MG CAPSULE PO PRN
[2019-09-23] MEDS: chlordiazePOXIDE HCL 10 MG CAPSULE PO SCH ×3 (06:18→22:20)
--- NOTE | 2019-09-23 09:53 | PN ---
[facility] CIWA - CIWA Score Nausea/Vomitin-No Nausea/No Vomiting Muscle Tremors: 1-None Visible, but [place] Anxiety: 1-Mildly Anxious Agitation: 1-Slight > Activity Paroxysmal Sweats: No Perspiration Orientation: 0-Oriented Tacttile Disturbances: 1-Very Mild Itch/Numbness Auditory Disturbances: 0-None Visual Disturbances: 0-None Headache: 1-Very Mild CIWA-Ar Total Score: 5 [facility] Progress Note (SOAP) Subjective: alert,irritable,interrupted sleep,anxious Objective: 09/23/19 09:52 Vital Signs Temperature 97.9 F 09/23/19 06:20 Pulse Rate 68 09/23/19 06:20 Respiratory Rate 18 09/23/19 06:20 Blood Pressure 116/71 09/23/19 06:20 O2 Sat by Pulse Oximetry (%) Assessment: 09/23/19 09:53 withdrawal symptom Plan: continue detox librium regimen,discharge in am
[2019-09-23] MEDS: PRENATAL VITAMINS W/ FOLIC ACID TABLET (FP) PO SCH (10:13)
[2019-09-23] MEDS: CYPROHEPTADINE HCL 4 MG TABLET PO SCH (10:13)
[2019-09-23] MEDS: THIAMINE HCL 100 MG TABLET (FP) PO SCH (22:20)
[2019-09-23] MEDS: DIVALPROEX NA *ER* EXTEND REL 500 MG TABLET.SA (FP) PO SCH (22:20)
[2019-09-23] MEDS: OLANZapine 10 MG TABLET PO SCH (22:20)
[2019-09-23] MEDS: MELATONIN 5 MG TABLETS PO PRN (22:20)
[2019-09-23] MEDS: IBUPROFEN 400 MG TABLET (FP) PO PRN (23:35)
[2019-09-24] MEDS ORDERED: chlordiazePOXIDE HCL 10 MG CAPSULE PO ONE (05:00)
[2019-09-24 07:08] VITALS: BP 128/74; PULSE 85; TEMP 97.2
[2019-09-24 11:18] LABS: URINE APPEARANCE CLEAR; URINE BILIRUBIN NEGATIVE (NEGATIVE); URINE COLOR YELLOW; URINE GLUCOSE (UA) NEGATIVE (NEGATIVE); URINE KETONE NEGATIVE (NEGATIVE); URINE LEUK ESTERASE NEGATIVE (NEGATIVE); URINE NITRITE NEGATIVE (NEGATIVE); URINE PROTEIN NEGATIVE (NEGATIVE); URINE UROBILINOGEN 0.2 mg/dL (0.2-1.0)
--- NOTE | 2019-09-24 14:26 | DS ---
[facility] Detox Discharge Summary Admission Date: 09/21/19 Discharge Date: 09/24/19 - History Present History: Alcohol Dependence, Cocaine Dependence, Opioid Dependence Additional Comments: Pt is medically cleared and discharged today. Pt completed the detox protocol. Pt is encouraged to follow-up with an outpatient CD program and also to follow- up with his pmd. Pt verbalized understanding of the information given. Pt is alert and oriented x3 and in no acute respiratory distress. Pertinent Past History: h/o alcohol. heroin, and cocaine use disorder. - Physical Exam Results Vital Signs: Vital Signs Temperature 97.2 F L 09/24/19 07:07 Pulse Rate 85 09/24/19 07:07 Respiratory Rate 18 09/24/19 07:07 Blood Pressure 128/74 09/24/19 07:07 O2 Sat by Pulse Oximetry (%) Vital Signs 09/24/19 07:07 Temperature 97.2 F L Pulse Rate 85 Respiratory 18 Rate Blood Pressure 128/74 Laboratory Last Values Urine Color Yellow 09/24/19 08:10 Urine Appearance Clear 09/24/19 08:10 Urine pH 7.0 (5.0-8.0) 09/24/19 08:10 Ur Specific [place] 1.017 (1.010-1.035) 09/24/19 08:10 Urine Protein Negative (NEGATIVE) 09/24/19 08:10 Urine Glucose (UA) Negative (NEGATIVE) 09/24/19 08:10 Urine Ketones Negative (NEGATIVE) 09/24/19 08:10 Urine Blood Negative (NEGATIVE) 09/24/19 08:10 Urine Nitrite Negative (NEGATIVE) 09/24/19 08:10 Urine Bilirubin Negative (NEGATIVE) 09/24/19 08:10 Urine Urobilinogen 0.2 mg/dL (0.2-1.0) 09/24/19 08:10 Ur Leukocyte Esterase Negative (NEGATIVE) 09/24/19 08:10 Valproic Acid 67.3 ug/mL (50-100) 09/21/19 07:00 Pertinent Admission Physical Exam Findings: withdrawal symptoms. - Treatment Hospital Course: Detox Protocol Followed, Detoxed Safely, Responded well, Discharged Condition Good - Medication Discharge Medications: Ambulatory Orders Divalproex Sodium [Depakote ER] 1,500 mg PO DAILY 03/08/18 Cyproheptadine [Periactin -] 4 mg PO DAILY 09/20/19 Vitamin E 400 unit PO DAILY 09/20/19 - Diagnosis (1) Alcohol dependence with uncomplicated withdrawal Status: Acute (2) Cannabis dependence, uncomplicated Status: Acute (3) Cocaine dependence, uncomplicated Status: Acute (4) Opioid abuse Status: Acute (5) Nicotine dependence Status: Chronic Qualifiers: Nicotine product type: cigarettes Substance use status: uncomplicated Qualified Code(s): F17.210 - Nicotine dependence, cigarettes, uncomplicated (6) Seizure disorder Status: Chronic (7) Hepatitis C Status: Resolved Qualifiers: Viral hepatitis chronicity: chronic Hepatic coma status: without hepatic coma Qualified Code(s): B18.2 - Chronic viral hepatitis C - AMA Did Patient Leave Against Medical Advice: No
== END 2019-09-24 08:25 | disposition home or self-care (01) | DRG 773 ==
LOC: YASAS 12:17 → Y6N 09-21 00:54
PROVIDERS: ADMIT Allergy & Immunology; ATTEND Allergy & Immunology
PROC: HZ2ZZZZ Detoxification Services for Substance Abuse Treatment (ICD-10-PCS; principal; 2019-09-21)
DX: F10.230 Alcohol dependence with withdrawal, uncomplicated (principal); F14.20 Cocaine dependence, uncomplicated; F12.20 Cannabis dependence, uncomplicated; F11.10 Opioid abuse, uncomplicated; F17.210 Nicotine dependence, cigarettes, uncomplicated; F25.9 Schizoaffective disorder, unspecified; F43.10 Post-traumatic stress disorder, unspecified; F19.282 Other psychoactive substance dependence with psychoactive substance-induced sleep disorder; G40.909 Epilepsy, unspecified, not intractable, without status epilepticus; B18.2 Chronic viral hepatitis C; R00.1 Bradycardia, unspecified; I45.10 Unspecified right bundle-branch block; R01.1 Cardiac murmur, unspecified; R94.31 Abnormal electrocardiogram [ECG] [EKG]; L03.031 Cellulitis of right toe; G47.00 Insomnia, unspecified; R44.0 Auditory hallucinations
CPT/HCPCS: 80164; 81003; 93005; 93010

== ENCOUNTER 2019-09-20 17:58 | Emergency (ER) | payer OTHER ==
[2019-09-20 18:05] VITALS: BMI 20.3
--- NOTE | 2019-09-20 18:25 | PDOC ---
History of Present Illness - General Chief Complaint: Revisit, Lab Variance Stated Complaint: ABNORMAL EKG Time Seen by Provider: 09/20/19 18:14 History Source: Patient Exam Limitations: No Limitations - History of Present Illness Initial Comments: 09/20/19 18:19 HPI: 59yo M PMH polysubstance abuse (cocaine, opiates, marijuana, EtOH, via ingestion/smoking and IVDA, now on methadone) and seizure disorder (on depakote) , presenting via EMS from [facility] for new RBBB on EKG since July. Patient was admitted to [facility] today (discharged from [facility] ED earlier today for voices / headache / CP - cleared by psychiatry) for detox. [facility] was unable to obtain a copy of the [facility] EKG ([id number]). Patient Depakote 16.1 and Troponin T were both negative at [facility], with DAVID: 0.0 and UTox: + JOSÉ MANUEL /MOP. Last detox in [facility] 1 month ago - states stayed sober for three weeks. Of note, February 2018 EKG with same incomplete RBBB noted today. Patient to return to [facility] once cleared. Denies chest pain, SOB, diaphoresis, nausea, vomiting, fevers, chills, headache at this time. Reports that he feels excellent, only hungry. Glad to be able to rule out MT but eager to get started on his rehab. NKDA Meds: Per chart PMH: Seizures - last 2 years ago. States r/t depression. PSH: Denies Past History - Travel Traveled outside of the country in the last 30 days: No Close contact w/someone who was outside of country & ill: No - Past Medical History Allergies/Adverse Reactions: Allergies Allergy/AdvReac Type Severity Reaction Status Date / Time No Known Allergies Allergy Verified 09/20/19 12:48 Home Medications: Ambulatory Orders Divalproex Sodium [Depakote ER] 1,500 mg PO DAILY 03/08/18 Cyproheptadine [Periactin -] 4 mg PO DAILY 09/20/19 Vitamin E 400 unit PO DAILY 09/20/19 Anemia: No Asthma: No Cancer: No Cardiac Disorders: No CVA: No COPD: No CHF: No Diabetes: No GI Disorders: No Disorders: No HTN: No Hypercholesterolemia: No Kidney Stones: No Liver Disease: Yes (Hep C (2000)) Seizures: Yes (6 MONTHS AGO- ON DEPAKOTE) Thyroid Disease: No - Surgical History Abdominal Surgery: Yes (HERNIA REPAIR UNBILICAL 80'S) Appendectomy: No Cardiac Surgery: No Cholecystectomy: No Lung Surgery: No Neurologic Surgery: No Orthopedic Surgery: No - Reproductive History Testicular Surgery: No - Psycho Social/Smoking Cessation Hx Smoking History: Current every day smoker Have you smoked in the past 12 months: Yes Number of Cigarettes Smoked Daily: 20 Cigars Per Day: 0 Information on smoking cessation initiated: No 'Breaking Loose' booklet given: 09/20/19 Hx Alcohol Use: Yes Drug/Substance Use Hx: Yes (cocaine) Substance Use Type: Alcohol, Cocaine, Heroin Hx Substance Use Treatment: Yes (detox, rehab, ) Review of Systems - Review of Systems Able to Perform ROS?: Yes Is the patient limited Thai proficient: Yes Constitutional: No: Chills, Diaphoresis, Fever HEENTM: No: Ear Discharge, Nose Congestion, Throat Pain Respiratory: No: Cough, Shortness of Breath, Wheezing Cardiac (ROS): No: Chest Pain, Edema, Irregular Heart Rate, Palpitations, Syncope, Chest Tightness ABD/GI: No: Constipated, Diarrhea, Nausea, Vomiting : No: Burning, Dysuria, Frequency Musculoskeletal: No: Back Pain, Muscle Pain, Muscle Weakness Integumentary: No: Bruising, Change in Color, Change in Hair/Nails, Erythema, Rash Neurological: No: Headache, Numbness, Tingling, Weakness Hematologic/Lymphatic: No: Anemia, Blood Clots, Easy Bleeding All Other Systems: Reviewed and Negative *Physical Exam - Vital Signs Last Vital Signs Temp Pulse Resp BP Pulse Ox 98 F 47 L 16 118/74 99 09/20/19 18:03 09/20/19 18:03 09/20/19 18:03 09/20/19 18:03 09/20/19 18:03 - Physical Exam 09/20/19 18:25 Vitals reviewed, afebrile, vitals stable WDWN man, appears stated age, conversant, cooperative, eating a sandwich NCAT, EOMI, MMM, normal morphologies RRR, nls1s2, murmur appreciated CTABL, normal WOB, no wheezes, crackles at bilateral lung bases Soft, non-tender, non-distended WWP, no clubbing / cyanosis / edema CN grossly intact, MAEE, normal sensation and strength Heart Score/ECG Review - History History: Slightly suspicious - Electrocardiogram EKG: Non specific repolarization disturbance (incomplete RBBB c/w prior EKGs) - Age Age: 45-65 - Risk Factors Based on the list above the patient has:: No risk factors known - Troponin Troponin: </= normal limit - Score Heart Score - Total: 2 ED Treatment Course - LABORATORY CBC & Chemistry Diagram: 09/20/19 18:33 09/20/19 18:17 Medical Decision Making - Medical Decision Making 09/20/19 18:40 59yo M PMH polysubstance abuse, presenting via EMS from [facility] for new RBBB on EKG since July. Patient without any complaints at the present except hunger. EKG with incomplete LBBB c/w prior, troponin T negative at OSH earlier today - will repeat EKG and obtain additional troponin. Physical exam notable for crackles at lung bases and murmur, both documented previously. DDX: R/o ACS , medically clear for [facility] detox. - CBC, CMP, Cardiac Profile - EKG - [place] - Dinner tray if available Dispo: Back to [facility] 09/20/19 19:09 EKG: Unchanged from prior EKGs from February / Today with incomplete LBBB Patient remains asymptomatic, sleeping comfortably 09/20/19 20:33 - Troponin negative - EKG unchanged from prior - Patient remains asymptomatic Dispo: [facility], send via EMS per Maritza Discharge - Discharge Information Problems reviewed: Yes Clinical Impression/Diagnosis: Abnormal EKG Condition: Stable Disposition: I.P. ALCOHOL/SUBS ABUSE REHAB - Admission No - Follow up/Referral - Patient Discharge Instructions Additional Instructions: Good luck with your recovery, please follow the advice and care provided at [facility]. Return to the ED for any new or concerning symptoms. - Post Discharge Activity - Transfer to Acute Care Facility Transfer Comment: 09/20/19 18:50 Patient to [facility]
[2019-09-20 18:43] LABS: BASO % 1.4 % (0-2.0); EOS % 1.5 % (0-4.5); HEMATOCRIT 40.9 % (35.4-49); HEMOGLOBIN 12.6 GM/dL (11.7-16.9); LYMPH % 43.3 % (8-40); MCH 23.6 pg (25.7-33.7); MCHC 30.9 g/dl (32.0-35.9); MEAN CELL VOLUME 76.3 fl (80-96); MEAN PLT VOLUME 8.3 fl (7.5-11.1); NEUT % 41.8 % (42.8-82.8); PLATELET COUNT 147 K/MM3 (134-434); RBC 5.36 M/mm3 (4.00-5.60); RDW 14.5 % (11.9-15.9); WHITE BLOOD COUNT 4.8 K/mm3 (4.0-10.0)
[2019-09-20] MEDS ORDERED: DIVALPROEX NA *ER* EXTEND REL 500 MG TABLET.SA (FP) PO ONE (19:44)
[2019-09-20 19:52] LABS: ALBUMIN 3.4 g/dl (3.4-5.0); ALK PHOS 82 U/L (45-117); ANION GAP 6 MMOL/L (8-16); BILIRUBIN,TOTAL 0.8 mg/dL (0.2-1); BLOOD UREA NITROGEN 12.1 mg/dL (7-18); CALCIUM 8.5 mg/dL (8.5-10.1); CHLORIDE 105 mmol/L (98-107); CO2 29 mmol/L (21-32); CREATININE 1.2 mg/dL (0.55-1.3); GLUCOSE,RANDOM 89 mg/dL (74-106); POTASSIUM 4.1 mmol/L (3.5-5.1); SGOT/AST 26 U/L (15-37); SGPT/ALT 23 U/L (13-61); SODIUM 140 mmol/L (136-145); TOT PROT 6.5 g/dl (6.4-8.2)
--- NOTE | 2019-09-20 20:36 | PDOC ---
Documentation entered by Rosa Cabrera SCRIBE, acting as scribe for Tremaine Scott MD. Tremaine Scott MD: This documentation has been prepared by the scribe, Rosa Cabrera SCRIBE, under my direction and personally reviewed by me in its entirety. I confirm that the documentation accurately reflects all work, treatment, procedures, and medical decision making performed by me. Attending Attestation - Resident Resident Name: ColeEdgard - ED Attending Attestation I have performed the following: I have examined & evaluated the patient, The case was reviewed & discussed with the resident, I agree w/resident's findings & plan, Exceptions are as noted - HPI HPI: 09/20/19 19:09 The patient is a 59-year-old male with a past medical history significant for polysubstance abuse, bipolar, schizophrenia and seizures who presents to the emergency department from [facility] via EMS for abnormal EKG findings significant for incomplete RBBB with a T-wave abnormality. The patient reports he was seen at [facility] earlier today for chest pain and psychiatrist symptoms. The patient reports he hasnt been compliant with Depakote for several days and has been hearing voices. The patient reports the voices are from his days, and they have been getting louder. The patient reports he had episodes of chest pain, while he was on the streets, denies chest pain currently. The patient reports he was sent to detox from [facility]. Denies chest pain fever, chills, cough. Denies any pain. Denies any si/hi - Physicial Exam PE: 09/20/19 20:01 GENERAL: The patient is awake, alert, and fully oriented, Nontoxic - in no acute distress. HEAD: Normocephalic, atraumatic. EYES: extraocular movements intact, sclera anicteric, conjunctiva clear. LUNGS: Breath sounds equal, clear to auscultation bilaterally. No wheezes, no crackles, no rales. HEART: Regular rate and rhythm, normal S1 and S2 without murmur, rub or gallop. ABDOMEN: Soft, nontender, normoactive bowel sounds. No guarding, no rebound. No masses. EXTREMITIES: Normal range of motion, no edema. NEUROLOGICAL: No facial asymmetry, Normal speech. PSYCH: Normal mood, normal affect. - Medical Decision Making 09/20/19 19:44 59y M hx of seizure, bipolar, schizophrenia [place] [facility] [place] abnormal e[place]. p has no complains, he did have an eval [facility] for chest pain a day o rso ago when he was in e streets but dnies any current complaints. exam unremarkable except for bradycarda hs ekg notd for a RBBB, this is unchanged from 2 ekgs again will ck basic labs will dc back [place] [facility] [place] pt notes he is on kepakote er 1500mg, but hasnt taken it and it helps him with his schizophrenia and seizures - will give him his dose here. 09/20/19 19:47 09/20/19 20:35 will dc pt back [place] [facility] [place] Heart Score/ECG Review - ECG Impressions Comment:: 09/20/19 19:47 Twelve-lead EKG was performed and reviewed by me. There is normal sinus rhythm rate of 42 incomplete rbbb
[2019-09-20 23:27] VITALS: BP 110/70; PULSE 53; TEMP 98.1
--- NOTE | 2019-09-21 11:29 | EKG ---
Test Reason : Blood Pressure : / mmHG Vent. Rate : 042 BPM Atrial Rate : 042 BPM P-R Int : 150 ms QRS Dur : 102 ms QT Int : 510 ms P-R-T Axes : 082 081 068 degrees QTc Int : 425 ms MARKED SINUS BRADYCARDIA INCOMPLETE RIGHT BUNDLE BRANCH BLOCK ABNORMAL ECG WHEN COMPARED WITH ECG OF 20-SEP-2019 16:56, T WAVE VARIATION Confirmed by LESLEE PRITCHETT MD ([id number]) on 09/21/2019 11:29:11 AM Referred By: Confirmed By:LESLEE PRITCHETT MD
== END 2019-09-21 00:30 | disposition other institution (70) ==
LOC: JER 17:58
DX: R94.31 Abnormal electrocardiogram [ECG] [EKG] (principal); I45.10 Unspecified right bundle-branch block; G40.909 Epilepsy, unspecified, not intractable, without status epilepticus; F31.9 Bipolar disorder, unspecified; F10.10 Alcohol abuse, uncomplicated; F11.20 Opioid dependence, uncomplicated; F14.20 Cocaine dependence, uncomplicated; F12.20 Cannabis dependence, uncomplicated
CPT/HCPCS: 36415; 80053; 82550; 82553; 84443; 84484; 85025; 93005; 93010; 99283-25

== ENCOUNTER 2021-08-07 13:58 | Inpatient (IN) | payer OTHER ==
[2021-08-07] MEDS ORDERED: diazePAM 5 MG TABLET PO PRN (15:31)
[2021-08-07] MEDS ORDERED: BISMUTH SUBSALICYLATE 524 MG/30 ML PO PRN (15:31)
[2021-08-07] MEDS ORDERED: MAG HYDROX/AL HYDROX/SIMETH 30 ML UNIT-DOSE CUP PO PRN (15:31)
[2021-08-07] MEDS ORDERED: MAGNESIUM CITRATE 300 ML BOTTLE PO PRN (15:31)
[2021-08-07] MEDS ORDERED: ACETAMINOPHEN 325 MG TABLET (FP) PO PRN ×2 (15:31)
[2021-08-07] MEDS ORDERED: MAGNESIUM HYDROX 2400MG/30ML ORAL SUSPENSION 30 ML CUP PO PRN (15:31)
[2021-08-07] MEDS ORDERED: MENTHOL/PHENOL 1 EACH UD MM PRN (15:31)
[2021-08-07] MEDS ORDERED: NICOTINE 10 MG CARTRIDGE (INHALER) IH PRN (15:31)
[2021-08-07] MEDS ORDERED: METHOCARBAMOL 500 MG TABLET PO PRN (15:31)
[2021-08-07] MEDS ORDERED: ONDANSETRON *ODT* 4 MG TABLET SL PRN (15:31)
[2021-08-07 15:43] VITALS: BMI 18.8
[2021-08-07] MEDS: diazePAM 5 MG TABLET PO SCH ×2 (18:30→22:34)
[2021-08-07] MEDS: hydrOXYzine PAMOATE 25 MG CAPSULE (FP) PO SCH ×2 (18:32→22:33)
[2021-08-07] MEDS: IBUPROFEN 400 MG TABLET (FP) PO PRN (18:34)
[2021-08-07] MEDS: THIAMINE HCL 100 MG TABLET (FP) PO SCH (22:33)
[2021-08-07] MEDS: MELATONIN 5 MG TABLETS PO SCH (22:33)
[2021-08-08] MEDS: hydrOXYzine PAMOATE 25 MG CAPSULE (FP) PO SCH ×5 (05:24→22:30)
[2021-08-08] MEDS: diazePAM 5 MG TABLET PO SCH ×4 (05:24→22:30)
[2021-08-08] MEDS: PRENATAL VITAMINS W/ FOLIC ACID TABLET (FP) PO SCH (10:10)
[2021-08-08 10:17] LABS: HEMATOCRIT 38.7 % (35.4-49); MCH 23.5 pg (25.7-33.7); MCHC 31.1 g/dl (32.0-35.9); MEAN CELL VOLUME 75.4 fl (80-96); MEAN PLT VOLUME 8.3 fl (7.5-11.1); PLATELET COUNT 207 10^3/uL (134-434); RBC 5.13 M/mm3 (4.00-5.60); RDW 14.9 % (11.9-15.9); WHITE BLOOD COUNT 4.4 K/mm3 (4.0-10.0)
[2021-08-08] MEDS: DIVALPROEX NA *ER* EXTEND REL 500 MG TABLET.SA (FP) PO SCH (11:13)
[2021-08-08 11:26] LABS: ALBUMIN 2.9 g/dl (3.4-5.0); CALCIUM 8.8 mg/dL (8.5-10.1)
[2021-08-08 11:27] LABS: BLOOD UREA NITROGEN 18.9 mg/dL (7-18)
[2021-08-08 11:30] LABS: CREATININE 1.1 mg/dL (0.55-1.3)
[2021-08-08 11:31] LABS: BILIRUBIN,TOTAL 0.2 mg/dL (0.2-1); TOT PROT 6.2 g/dl (6.4-8.2)
[2021-08-08] MEDS: MELATONIN 5 MG TABLETS PO SCH (22:29)
[2021-08-08] MEDS: THIAMINE HCL 100 MG TABLET (FP) PO SCH (22:30)
[2021-08-09] MEDS: diazePAM 5 MG TABLET PO SCH ×3 (05:17→21:36)
[2021-08-09] MEDS: hydrOXYzine PAMOATE 25 MG CAPSULE (FP) PO SCH ×5 (05:20→21:36)
[2021-08-09] MEDS: PRENATAL VITAMINS W/ FOLIC ACID TABLET (FP) PO SCH (10:17)
[2021-08-09] MEDS: DIVALPROEX NA *ER* EXTEND REL 500 MG TABLET.SA (FP) PO SCH (10:18)
[2021-08-09] MEDS: THIAMINE HCL 100 MG TABLET (FP) PO SCH (21:36)
[2021-08-09] MEDS: MELATONIN 5 MG TABLETS PO SCH (21:36)
[2021-08-10] MEDS: hydrOXYzine PAMOATE 25 MG CAPSULE (FP) PO SCH ×5 (05:18→22:06)
[2021-08-10] MEDS: diazePAM 5 MG TABLET PO SCH ×2 (05:19→17:51)
[2021-08-10] MEDS: IBUPROFEN 400 MG TABLET (FP) PO PRN (05:20)
[2021-08-10] MEDS: PRENATAL VITAMINS W/ FOLIC ACID TABLET (FP) PO SCH (10:28)
[2021-08-10] MEDS: DIVALPROEX NA *ER* EXTEND REL 500 MG TABLET.SA (FP) PO SCH (10:28)
[2021-08-10] MEDS: BACITRACIN 0.9 GM PACKET TP SCH ×2 (10:28→22:06)
[2021-08-10] MEDS: CEPHALEXIN MONOHYDRATE 500 MG CAPSULE (UD) PO SCH ×2 (13:51→17:49)
[2021-08-10] MEDS: THIAMINE HCL 100 MG TABLET (FP) PO SCH (22:06)
[2021-08-10] MEDS: MELATONIN 5 MG TABLETS PO SCH (22:06)
[2021-08-11] MEDS: CEPHALEXIN MONOHYDRATE 500 MG CAPSULE (UD) PO SCH ×2 (01:59→05:09)
[2021-08-11] MEDS: hydrOXYzine PAMOATE 25 MG CAPSULE (FP) PO SCH ×2 (05:08→09:55)
[2021-08-11] MEDS ORDERED: diazePAM 5 MG TABLET PO ONE (06:00)
[2021-08-11 09:13] VITALS: BP 97/71; PULSE 70; TEMP 97.1
[2021-08-11] MEDS: DIVALPROEX NA *ER* EXTEND REL 500 MG TABLET.SA (FP) PO SCH (09:54)
[2021-08-11] MEDS: BACITRACIN 0.9 GM PACKET TP SCH (09:54)
[2021-08-11] MEDS: PRENATAL VITAMINS W/ FOLIC ACID TABLET (FP) PO SCH (09:55)
== END 2021-08-11 10:13 | disposition home or self-care (01) | DRG 774 ==
LOC: YASAS 13:58 → Y3N 17:07
PROVIDERS: ADMIT Allergy & Immunology; ATTEND Allergy & Immunology
PROC: HZ2ZZZZ Detoxification Services for Substance Abuse Treatment (ICD-10-PCS; principal; 2021-08-07)
DX: F10.230 Alcohol dependence with withdrawal, uncomplicated (principal); F14.20 Cocaine dependence, uncomplicated; F17.210 Nicotine dependence, cigarettes, uncomplicated; F25.9 Schizoaffective disorder, unspecified; F19.24 Other psychoactive substance dependence with psychoactive substance-induced mood disorder; F31.9 Bipolar disorder, unspecified; G40.909 Epilepsy, unspecified, not intractable, without status epilepticus; G47.00 Insomnia, unspecified; Z86.19 Personal history of other infectious and parasitic diseases; Z86.11 Personal history of tuberculosis; Z87.820 Personal history of traumatic brain injury; Z56.0 Unemployment, unspecified
CPT/HCPCS: 36415; 71046-TC-FY; 80053; 85027; 86780; C9803; U0003; U0005